=== PATIENT | male | born 1950 | race African-American/Black ===

== ENCOUNTER 2018-07-11 22:07 | Inpatient (IN) ==
[2018-07-11] MEDS ORDERED: ZOFRAN IV ONE (22:55)
[2018-07-11] MEDS ORDERED: LR 1,000 ML IV ONE (22:56)
[2018-07-11 23:06] LABS: BILIRUBIN URINE NEGATIVE (NEGATIVE); BLOOD URINE 3+ (NEGATIVE); CLARITY SL. CLOUDY (CLEAR); COLOR YELLOW; KETONE URINE 1+(Small) mg/dL (NEGATIVE); LEUKOCYTES URINE 2+ (NEGATIVE); NITRITE URINE NEGATIVE (NEGATIVE); PH URINE 6.5; PROTEIN URINE 1+(30 mg/dL) mg/dL (NEGATIVE); SP GRAVITY URINE 1.015; URINE BACTERIA 3+ /HFP; URINE EPITHELIAL CELLS <10 /HPF (<10); URINE RBC 20-40 /HPF (<10); URINE SOURCE CLEAN CATCH; UROBILINOGEN URINE NORMAL
[2018-07-11 23:39] LABS: BASO# 0.01 X1000 (0.0-0.2); BASO% 0.1 % (0.0-0.8); EOS# 0.01 X1000 (0.0-0.7); EOS% 0.1 % (0.0-10.0); HEMATOCRIT 45.2 % (42.0-52.0); HEMOGLOBIN 15.9 g/dL (14.0-18.0); IMM GRAN# 0.04 X1000 (0.0-0.04); IMM GRAN% 0.4 % (0.0-0.5); LYMPH# 1.22 X1000 (1.2-3.4); LYMPH% 12.3 % (20.5-51.1); MCH 32.3 PG (27-31); MCHC 35.2 g/dL (33-37); MCV 91.7 FL (81-99); NEUT# 8.21 X1000 (1.4-6.5); NEUT% 83.1 % (42.2-75.2); PLT 138 X1000 (130-400); RBC 4.93 XMIL (4.7-6.1); RDW 12.5 % (11.5-14.5); WBC 9.89 X1000 (4.8-10.8)
[2018-07-11 23:50] LABS: AGAP 15; ALBUMIN 4.7 g/dL (3.5-5.0); ALKALINE PHOSPHATASE 105 U/L (32-122); BUN 11 mg/dL (8-22); CALCIUM 9.5 mg/dL (8.8-10.2); CHLORIDE 95 mmol/L (98-107); COSMO 283; CREATININE 0.9 mg/dL (0.7-1.2); ESTIMATED GFR > 60; GLUCOSE 335 mg/dL (70-104); GOT 19 U/L (10-34); GPT 20 U/L (10-44); LIPASE 14 U/L (13-60); POTASSIUM 3.9 mmol/L (3.5-5.1); SODIUM 135 mmol/L (136-145); TCO2 24 mmol/L (25-35); TOTAL PROTEIN 9.6 g/dL (6.3-8.3)
[2018-07-12] MEDS ORDERED: HUMULIN R IV ONE (00:43)
[2018-07-12] MEDS ORDERED: MORPHINE IV ONE (01:12)
[2018-07-12] MEDS ORDERED: ZOSYN 3.375 GM in NS 50 ML IV ONE (01:54)
--- NOTE | 2018-07-12 01:58 | PROVIDER DOCUMENTATION ---
This chart was entered by Dixie Flower Scribe, acting as scribe for Demetri Massey MD. HPI-Abdominal Pain/GI Problem - General Chief Complaint: Abdominal Pain Stated Complaint: ABD PAIN, N/V Time Seen by Provider: 07/11/18 22:41 Source: patient Allergies/Adverse Reactions: Patient Allergies Allergy/AdvReac Type Severity Reaction Status Date / Time No Known Allergies Allergy Verified 09/29/15 14:13 Home Medications: Home Medication List Medication Instructions Recorded Confirmed Last Taken Type Carvedilol 25 mg PO BID 02/19/14 09/29/15 05/19/14 12:00 History Clonidine [Catapres] 0.2 mg PO BID 02/19/14 09/29/15 05/19/14 12:00 History Insulin Glargine,Hum.rec.anlog 20 unit SQ BID 02/19/14 09/29/15 05/18/14 09:00 History [Lantus Solostar] Metformin E.r. [Glucophage Xr] 500 mg PO BID CC 02/19/14 09/29/15 05/18/14 18:00 History Famotidine [Pepcid] 40 mg PO HS 05/19/14 09/29/15 05/17/14 20:00 History Amlodipine Besylate 10 mg PO DAILY 09/29/15 09/29/15 Unknown History Citalopram [Celexa] 20 mg PO DAILY 09/29/15 09/29/15 Unknown History Hydralazine [Apresoline] 10 mg PO TID 09/29/15 09/29/15 Unknown History LISINOpril [Prinivil] 10 mg PO DAILY 09/29/15 09/29/15 Unknown History Tamsulosin HCl 0.4 mg PO DAILY 09/29/15 09/29/15 Unknown History CephALEXIN [Keflex] 500 mg PO Q12HR #10 capsule 10/05/15 Unknown Rx Oxycodone/APAP 5 mg/325 mg 1 each PO Q6H #20 tablet 10/05/15 Unknown Rx [Percocet-5] - History of Present Illness-ABD Nature of Presenting Problems: Pt is 67/m presenting to ED w/ ABD pain. Pt sts that he had catfish and cabbage this morning and has since has n/v and abd pain. pt has hx of colon CA Abdominal Pain Onset Location: reports: epigastric Pain Radiation: reports: no radiation Quality of Pain: reports: aching Severity in ED: reports: moderate Onset/Duration: reports: just prior to arrival Timing: reports: still present Activities at Onset: reports: other (eating cabbage and fish) Exposure to sick contacts?: No Modifying Factors: improves with: nothing Associated Symptoms: reports: nausea, vomiting Last BM: unsure Bruising or Bleeding Gums?: No Similar Symptoms Previously?: No Recently seen or treated by another doctor?: No Review of Systems - Adult - REVIEW OF SYSTEMS - ADULT Constitutional: reports: no symptoms reported. denies: chills, fever Eyes: reports: no symptoms reported Ears, Nose, Mouth & Throat: reports: no symptoms reported Cardiovascular: reports: no symptoms reported Respiratory: reports: no symptoms reported Gastrointestinal: reports: abdominal pain, nausea, vomiting. denies: diarrhea Genitourinary: reports: no symptoms reported Musculoskeletal: reports: no symptoms reported Integumentary: reports: no symptoms reported Neurological: reports: no symptoms reported Psychiatric: reports: no symptoms reported Endocrine: reports: no symptoms reported Hematologic/Lymphatic: reports: no symptoms reported Allergic/Immunologic: reports: no symptoms reported All Other Systems: Reviewed and Negative Past History - Adult - PAST MEDICAL HISTORY-ADULT Review of Records: reports: Old Records Reviewed, Nursing Assessment Review, Medications Reviewed, Social history reviewed & non-contributory. Major Childhood Illnesses: reports: denies history Cardiovascular: reports: cardiac disease, CAD, HTN Respiratory: reports: denies history Gastrointestinal: reports: cancer (colon) Obstetrical/Gynecological: reports: denies history Genitourinary: reports: denies history Musculoskeletal: reports: chronic pain, intervertebral disc disease Neurological: reports: denies history Endocrine/Immune: reports: Diabetes Other Conditions: reports: denies history - PRIOR SURGERIES/PROCEDURES Surgical/Procedure History: reports: CABG, bowel surgery (colon resection), back/neck - IMMUNIZATION STATUS Childhood Immunizations: See Nurse Assessment Flu Vaccine: See Nurse Assessment - FAMILY HISTORY Family History: reviewed, not pertinent - SOCIAL HISTORY Smoking: cigarettes Provider spent 3-5 mins advising pt. on dangers of tobacco.: Discussed manners to quit use, and f/u contacts for add'l counseling. Substance Use: none/never Alcohol Use Frequency: never Living Situation: family Physical Exam-General - PHYSICAL EXAM-ADULT Initial Vital Signs Reviewed: Yes - CONSTITUTIONAL General Appearance: alert, moderate distress - EYES Eyes: PERRL/EOMI - HEAD, EARS, NOSE, MOUTH & THROAT HENMT: normocephalic/atraumatic, moist mucous membranes - NECK Neck: non-tender, full range of motion, supple, normal inspection - RESPIRATORY Respiratory: lungs clear - CARDIOVASCULAR Cardiovascular: regular rate, rhythm - GASTROINTESTINAL (ABDOMEN) Abdominal Exam: soft, abnormal bowel sounds (increased bowel sounds), distended (mildly), tenderness (moderately tender diffuse) - LYMPHATIC Lymphatic: no adenopathy - MUSCULOSKELETAL Back Exam: normal inspection, no CVA tenderness, no vertebral tenderness Extremity: normal range of motion, non-tender, normal gait, normal inspection - SKIN Integumentary: normal color, warm/dry - PSYCHIATRIC Psych/Mental Status: normal thought process, oriented x 3 Progress - PLAN OF CARE/RESULTS Progress/Plan/Lab Results: Vital Signs - 8 hr 07/11/18 22:11 Pulse Rate 72 Respiratory Rate 20 Blood Pressure 195/100 O2 Sat by Pulse Oximetry 99 Orders Category Date Time Status Saline Loc DIRECTED Care 07/11/18 22:19 Active NPO Diet 07/11/18 22:19 Active AMYLASE [CHEM] Stat Lab 07/11/18 22:19 Ordered CBC WITH ELECTRONIC DIFF [HEME] Stat Lab 07/11/18 22:19 Ordered COMPREHENSIVE METABOLIC PANEL [CHEM] Stat Lab 07/11/18 22:33 Ordered LIPASE [CHEM] Stat Lab 07/11/18 22:[address] W/POSS RFLX CULT [URINALYSIS] Stat Lab 07/11/18 22:20 Received Result Diagrams: 07/11/18 23:01 07/11/18 23:01 - REASSESSMENT Reassessment #1 Time Reassessed: 02:07 Status: other (seen by Dr. Hamilton : will admit to [facility]) - CT/MRI 1 CT Study: Abdomen Impression: Abnormal (developing or partial small bowel obstruction;small amount of free fluid) - CONSULTS/PCP/HOSPITALIST Notification #1 *Consult/PCP/Hospitalist*: Dr. 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 Qualified Code(s): E11.65 - Type 2 diabetes mellitus with hyperglycemia; Z79.4 - residential (current) use of insulin Disposition: ADMITTED INPATIENT 09 Certified Medical Emergency: Emergent Condition: Serious Referrals and Follow-Ups: Reed Pagan MD [Primary Care Provider] - - Critical Care Note This patient required my direct & personal management of CC.: No Attestation - Physician/ ANGELA Attestation Patient care was provided by Advanced Practice Provider:: No The physician spent face to face time with patient:: Yes Advanced Practice Provider documentation review:: Supervising physician onsite and consulted in the evaluation and care of this patient. The physician did have a face to face encounter with the patient. This chart was documented by the indicated scribe, (Dixie Flower Scribe) and accurately reflects the services I performed and decisions made by Shilpa terrell Kofi X., MD, as attested by the provider's signature.
[2018-07-12] MEDS ORDERED: NS 1,000 ML IV ONE (02:14)
[2018-07-12] MEDS: MORPHINE IV PRN ×9 (02:42→23:08)
[2018-07-12] MEDS: ZOFRAN IV PRN ×5 (02:43→20:14)
--- NOTE | 2018-07-12 03:12 | HISTORY AND PHYSICAL ---
CHIEF COMPLAINT: Abdominal pain. HISTORY OF PRESENT ILLNESS: This is a 67-year-old male who presents to the ER with periumbilical to lower abdominal pain that is intermittent in nature but severe, worsened with vomiting, lessened after he vomits. It began yesterday morning after eating some cabbage. He has not had a bowel movement in a day and he has not passed gas in the past 24 hours. PAST MEDICAL HISTORY: Colon cancer, hypertension, diabetes, coronary artery disease. PAST SURGICAL HISTORY: Partial colectomy, back surgery, open heart surgery. ALLERGIES: No known drug allergies. HOME MEDICATIONS: [place], insulin and blood pressure medicine; he does not recall the names. FAMILY HISTORY: Reviewed and noncontributory. SOCIAL HISTORY: He smokes a pack per day. He drinks alcohol occasionally. No illicit drug use. REVIEW OF SYSTEMS: Ten systems reviewed and negative except as noted above. PHYSICAL EXAMINATION: VITAL SIGNS: Temperature 98.4 degrees, pulse 83, respirations 18, blood pressure 195/109, O2 saturation 94%. GENERAL: He is a well-developed male in no distress who looks his stated age. HEENT: Normocephalic, atraumatic. Extraocular muscles intact. Pupils equal, round and reactive to light. Sclerae anicteric. Moist mucous membranes. Hearing grossly normal. No oral lesions. NECK: Supple. No thyromegaly. CARDIOVASCULAR: Regular rate and rhythm. RESPIRATORY: Bilateral breath sounds. No work of breathing. GASTROINTESTINAL: Soft. Mildly distended, mildly tender. No rebound or guarding. No organomegaly or mass. No hernias. He has a well-healed lower midline incision. EXTREMITIES: No clubbing, cyanosis or edema. SKIN: Warm and dry. No rash. MUSCULOSKELETAL: Moves all extremities equally and well. LABORATORY DATA: CBC and complete metabolic profile reviewed, and notable for sodium 135, chloride 95, CO2 is 24, glucose 335. DIAGNOSTIC DATA: Abdominopelvic CT scan shows proximal small bowel dilation, distal small bowel decompression with a transition point in the midabdomen. No free air or free fluid. ASSESSMENT AND PLAN: A 67-year-old male with small-bowel obstruction, likely secondary to adhesive disease. We will admit him, keep him NPO, rehydrate him and place a nasogastric tube to low wall suction, and re-examine his abdomen and imaging tests later today. cc: Adriel Hamilton MD
--- NOTE | 2018-07-12 04:57 | CONSULTATION ---
DATE OF CONSULTATION: 07/12/2018 REQUESTING PROVIDER: Adriel Hamilton MD REASON FOR CONSULTATION: Medical and diabetes management. HISTORY OF PRESENT ILLNESS: Mr. Toure is a 67-year-old male who came into the emergency room yesterday related to having abdominal pain. It was lower abdomen and periumbilical. It was severe, sharp, intermittent. Was made better after vomiting. It was worse while vomiting. He had several episodes of emesis and came into the emergency room. 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 He states that he has not had a bowel movement in 24 hours, has also not passed gas in around [address] scan obtained showed a small-bowel obstruction. He will be admitted to the medical floor for further evaluation and treatment. PAST MEDICAL HISTORY: Colon cancer status post colon resection, hypertension, diabetes mellitus type 2, coronary artery disease status post CABG. PREVIOUS SURGICAL HISTORY: Partial colectomy, back surgery and CABG. SOCIAL HISTORY: Smokes a pack a day. Drinks alcohol occasionally. No illicit drug use. He is disabled. FAMILY HISTORY: Positive for hypertension and diabetes mellitus in first-degree relatives. ALLERGIES: No known drug allergies. HOME MEDICATIONS LIST: [place], insulin and blood pressure medications. The patient was unable to give me a list. Order was placed for Nursing to reconcile a list of medications in the computer. These will be restarted when appropriate. REVIEW OF SYSTEMS: Fourteen-point review of systems conducted with the patient. Pertinent positives are listed above in the HPI. All other systems are reviewed and found to be negative. PHYSICAL EXAMINATION: VITAL SIGNS: Temperature 97.8, pulse 81, respirations 18, blood pressure 156/90, oxygen saturation 95% on room air. GENERAL: A pleasant 67-year-old male lying in the ER stretcher, answers all questions appropriately, is alert and oriented times 3. HEENT: Head is atraumatic, normocephalic. Pupils equal, round, reactive to light. Extraocular eye movement is intact. Sclerae are anicteric. Conjunctiva is pink. Oral mucosa is mildly dry. NECK: Supple. No JVD. No thyromegaly. Trachea is midline. No cervical lymphadenopathy. CARDIAC: S1, S2 appreciated. No murmurs, gallops, or rubs. LUNGS: Clear to auscultation bilaterally. No rhonchi, wheezes or rales. Symmetrical rise and fall with respirations. ABDOMEN: Soft, mildly distended, diffusely tender to palpation, greatest in the lower abdomen. No rebound tenderness. No guarding. Bowel sounds hypoactive in all 4 quadrants. No organomegaly. No pulsatile mass. EXTREMITIES: No clubbing, cyanosis or edema. Two-plus pedal pulses bilaterally. SKIN: Warm, dry and intact. No acute lesions or rash. GENITOURINARY: No bladder distention. Patient voids. Otherwise deferred. NEUROLOGICAL: Alert and oriented times 3. No focal motor deficits. Otherwise nonfocal examination. DIAGNOSTIC DATA: CT of the abdomen and pelvis showed a developing or partial small bowel obstruction. LABORATORY DATA: CBC within normal limits. Sodium 135, potassium 3.9, chloride 95, carbon dioxide 24, BUN 11, creatinine 0.9, glucose 335. Urine: Leukocyte esterase positive, 2+ WBC, 3+ bacteria. ASSESSMENT AND PLAN: 1. Partial small-bowel obstruction. Dr. Hamilton has admitted the patient. Nasogastric tube will remain to low wall suction for decompression. Will continue IV rehydration. Morphine as needed for pain. 2. Hypertension. Patient was unable to tell me which home medications he takes. Will place on labetalol 10 mg IV q.4 hours p.r.n. Nursing to reconcile home medications. These will be restarted when appropriate. 3. Diabetes mellitus type 2, now insulin-dependent with hyperglycemia. Check hemoglobin A1c. Sliding scale insulin. Fingerstick blood sugars. 4. Urinary tract infection. Rocephin 1 g IV q.24 hours. 5. Fluid volume depletion. Continue IV rehydration. Zofran as needed for nausea. Further recommendations per the patient's clinical course. Dictated by SILVIO Bojorquez for Bright Newell MD cc: SILVIO Bojorquez MD Jason R. Seale, MD I have seen and examined Mr Toure who came from [place] under the surgery services. We have been consulted for co-management of his other medical morbidities. He presents with partial SBO. will keep NPO and repeat KUB in the morning and follow further recommendations from surgery. I agree with the above consult not and the plan reflects my opinion discussed with the NECKTIES PAINTER. KAROL
[2018-07-12 05:18] LABS: HEMOGLOBIN A1C 10.2 % (4.8-6.0)
[2018-07-12] MEDS: LABETALOL IV PRN ×3 (06:00→21:17)
[2018-07-12] MEDS ORDERED: HUMULIN R (PARKWAY) SUBQ SCH (07:00)
--- NOTE | 2018-07-12 07:15 | Diag Imaging Result Doc PS360 ---
EXAM: CT ABD/PELVIS W/IV CONT ONLY 07/11/2018 HISTORY: abdominal pain TECHNIQUE: This exam was performed using automated exposure control, adjustment of mA or kV according to patient size, and/or use of iterative reconstruction technique. COMMENT: There are no previous abdominal studies available for comparison. Comparison is made with the CT of the chest of 09/29/2015 where possible. There are apparent fibrotic changes in the lung bases which were present at the time the previous examination. There are two subcentimeter nodular opacities present in the left posterior costophrenic sulcus which were also present at that time. There are numerous small densely calcified gallstones. There is no evidence of para cholecystic fluid or inflammation. There are granulomata in the spleen. The liver is unremarkable. There is a small amount of fluid present in the right paracolic gutter and directly adjacent to the inferior portion of the liver. The kidneys are without evidence of hydronephrosis or mass. The adrenal glands are not enlarged. The pancreas is unremarkable in appearance. There is atherosclerotic calcification in the aorta and iliac arteries. There is an infrarenal abdominal aortic aneurysm with a maximum AP diameter of 2.9 cm. This was not included on the previous thoracic study. The aorta was not visible on the ultrasound of 09/29/2015, however at the time of the lumbar spine CT of 05/03/2014, the aorta measured up to 2.8 cm in AP dimension. There is some fluid in the stomach without significant distention. There are some small bowel loops which are slightly distended containing fluid. There is no evidence of significant adenopathy. The colon is largely nondistended. There are distal small bowel loops which are normal or slightly diminished in caliber. The duodenum is not distended nor is there apparent distention of the proximal jejunum. There is an apparent transition in the mid upper pelvis. Pelvis: The appendix is normal in appearance. There is a fat-containing umbilical hernia. There is a small amount of fluid in the rectovesical pouch. The urinary bladder is not distended. There is no evidence of acute bony abnormality. There is no evidence of significant adenopathy. IMPRESSION: 1. Partial small bowel obstruction. 2. Abdominal aortic aneurysm, essentially stable since 05/03/2014. 3. Cholelithiasis. Electronically signed by Ivan Huynh 07/12/2018 7:13 AM
[2018-07-12] MEDS: HUMALOG SUBQ SCH ×4 (08:04→21:58)
[2018-07-12] MEDS: ROCEPHIN 1 GM in NS 50 ML IV SCH (08:04)
--- NOTE | 2018-07-12 09:36 | Diag Imaging Result Doc PS360 ---
ABDOMEN FLAT/UPRIGHT - 07/12/2018 INDICATION: sbo COMPARISON: CT from earlier this morning FINDINGS: There are some slightly gas distended loops of small bowel throughout the abdomen mainly on the left side. These measure up to 3.5 cm. There is very little gas or stool in the colon. No free air. IMPRESSION: Abnormal small bowel gas pattern suggestive of partial mechanical obstruction. No change from prior. Electronically signed by Cristino Pike 07/12/2018 9:33 AM
--- NOTE | 2018-07-12 14:01 | GENERAL SURGERY PROGRESS NOTE ---
DATE: 07/12/2018 SUBJECTIVE: The patient feels about the same with mid abdominal pain and distention. No nausea or vomiting. He has not passed any gas or had a bowel movement. The nurses were unsuccessful in getting NG tube this morning. OBJECTIVE: He is afebrile. Vital signs are stable. General he is awake, alert, oriented x3. No acute distress. GI soft, mildly distended and tender. No rebound or guarding. He has a few bowel sounds present. LABORATORY: None today. IMAGING: An abdominal x-ray this morning continues to show gas distended loops of small bowel with very little gas or stool in the colon. ASSESSMENT/PLAN: 67-year-old male with small bowel obstruction. We will try an NG tube again and repeat an x-ray in the morning. Dr. Mares will take over his care during my absence. cc: MD Red Mai MD
[2018-07-12] MEDS: NS 1,000 ML IV SCH ×2 (16:34→20:19)
[2018-07-12] MEDS: VASOTEC IV SCH (17:20)
[2018-07-12] MEDS: SODIUM CHLORIDE 0.9% INJ SCH (18:04)
[2018-07-12] MEDS: PROTONIX IV SCH (18:04)
[2018-07-12] MEDS ORDERED: DULCOLAX PR SCH (21:00)
[2018-07-13] MEDS: VASOTEC IV SCH ×2 (04:10→16:49)
[2018-07-13 05:55] LABS: BASO# 0.01 X1000 (0.0-0.2); BASO% 0.2 % (0.0-0.8); EOS# 0.02 X1000 (0.0-0.7); EOS% 0.3 % (0.0-10.0); HEMATOCRIT 41.7 % (42.0-52.0); HEMOGLOBIN 14.4 g/dL (14.0-18.0); LYMPH# 1.25 X1000 (1.2-3.4); LYMPH% 20.8 % (20.5-51.1); MCH 33.1 PG (27-31); MCHC 34.5 g/dL (33-37); MCV 95.9 FL (81-99); MONO# 0.76 X1000 (0.11-0.59); MONO% 12.6 % (1.7-9.3); MPV 14.2 FL (7.4-10.4); NEUT# 3.98 X1000 (1.4-6.5); NEUT% 66.1 % (42.2-75.2); PLT 128 X1000 (130-400); RBC 4.35 XMIL (4.7-6.1); RDW 12.7 % (11.5-14.5); WBC 6.02 X1000 (4.8-10.8)
[2018-07-13] MEDS: HUMALOG SUBQ SCH ×4 (06:09→20:59)
[2018-07-13 06:27] LABS: AGAP 11; BUN 19 mg/dL (8-22); CALCIUM 8.7 mg/dL (8.8-10.2); CHLORIDE 103 mmol/L (98-107); COSMO 290; CREATININE 1.2 mg/dL (0.7-1.2); ESTIMATED GFR > 60; GLUCOSE 242 mg/dL (70-104); POTASSIUM 3.7 mmol/L (3.5-5.1); SODIUM 140 mmol/L (136-145); TCO2 26 mmol/L (25-35)
[2018-07-13] MEDS: ROCEPHIN 1 GM in NS 50 ML IV SCH (08:13)
--- NOTE | 2018-07-13 10:17 | PROGRESS NOTE ---
DATE: 07/13/2018 SUBJECTIVE: Mr. Boaz Toure is a 67-year-old black male admitted by Dr. Adriel Hamilton with the diagnosis of small-bowel obstruction. He has had previous abdominal surgery. A CT scan also suggests that he has cholelithiasis. He has not had an NG tube placed because it has been difficult to place it. This morning he states that his abdominal discomfort is resolved. His abdomen is soft and he admits to passing a lot of flatus. His heart rate is 88, blood pressure 120/58. O2 saturation 95%. He is afebrile. His white blood cell count is normal. Hematocrit is 42%. Electrolytes are within normal limits. BUN of 19, creatinine 1.2. His glucose has been a little bit elevated. PLAN: We will let him have clear liquids. Stop his IV antibiotics and morphine. We will increase his activity. cc: MD eRd Ruiz MD
--- NOTE | 2018-07-13 11:13 | Diag Imaging Result Doc PS360 ---
FLAT/UPRIGHT ABD/1 VIEW CHEST - 07/13/2018 INDICATION: sbo TECHNIQUE: COMPARISON: 07/12/2018 FINDINGS: There is stable pulmonary fibrosis bilaterally. Stable abnormally gas-distended small bowel loops mainly in the left side of the abdomen. No free air or rectal gas. IMPRESSION: Small bowel obstruction. No change from prior. Electronically signed by Cristino Pike 07/13/2018 11:10 AM
[2018-07-13] MEDS: ZOFRAN IV PRN (14:46)
[2018-07-13] MEDS: NORCO-10 PO PRN ×2 (14:48→20:59)
[2018-07-13] MEDS: NS 1,000 ML IV SCH (14:51)
[2018-07-13] MEDS: SODIUM CHLORIDE 0.9% INJ SCH (16:49)
[2018-07-13] MEDS: PROTONIX IV SCH (16:49)
[2018-07-13] MEDS ORDERED: VANCOMYCIN IV PER PHARMACY MISC SCH (17:15)
[2018-07-13] MEDS ORDERED: SODIUM CHLORIDE 0.9% INJ SCH (17:30)
--- NOTE | 2018-07-13 17:35 | PROGRESS NOTE ---
DATE: 07/13/2018 SUBJECTIVE: Patient has no major complaints except he started throwing up today after he got liquids. OBJECTIVE: Vital Signs: Blood pressure is 185/92, heart rate is 82, respiratory rate 18, temperature 98.8, 98% on room air. Cardiovascular: Regular rate and rhythm. Pulmonary: Bilateral breath sounds clear to auscultation. GI: Soft, nontender, nondistended. Bowel sounds are positive, but diminished. LABORATORY DATA: White count is 6, hemoglobin and hematocrit 14 and 41, platelets 128. Blood glucose 242, 308, still very high. PROBLEM LIST: 1. Partial small bowel obstruction. He has not done as well since we advanced his diet. We may have to back off a little bit. I will defer to surgery though. 2. Hypertension. It is still not well controlled. I am going to increase his Vasotec and follow closely. 3. Diabetes. Also not completely controlled. We may need to start some low-dose Lantus. I know he is not ingesting very much, but he has some fairly persistent hyperglycemia. He is on sliding scale insulin for the time being. 4. Urinary tract infection. We will continue empiric antibiotics. He has got gram-positive cocci in his urine, so we will continue vancomycin and follow. DISPOSITION: Pending his clinical status. cc: Red Colon MD
[2018-07-13] MEDS ORDERED: PROTONIX IV SCH (18:00)
[2018-07-13] MEDS: MORPHINE IV PRN (18:37)
[2018-07-13] MEDS ORDERED: VANCOMYCIN 2 GM in NS 500 ML IV ONE (20:00)
[2018-07-13] MEDS: DULCOLAX PR SCH (20:59)
[2018-07-14] MEDS: MORPHINE IV PRN ×4 (01:17→20:17)
[2018-07-14] MEDS: NS 1,000 ML IV SCH (01:18)
[2018-07-14] MEDS: VASOTEC IV SCH ×2 (01:18→08:29)
[2018-07-14 05:59] LABS: BASO# 0.01 X1000 (0.0-0.2); BASO% 0.1 % (0.0-0.8); EOS# 0.06 X1000 (0.0-0.7); EOS% 0.8 % (0.0-10.0); HEMATOCRIT 41.6 % (42.0-52.0); IMM GRAN# 0.02 X1000 (0.0-0.04); IMM GRAN% 0.3 % (0.0-0.5); LYMPH# 1.96 X1000 (1.2-3.4); LYMPH% 27.6 % (20.5-51.1); MCH 32.3 PG (27-31); MCHC 33.7 g/dL (33-37); MCV 95.9 FL (81-99); MONO# 0.98 X1000 (0.11-0.59); MONO% 13.8 % (1.7-9.3); MPV 13.7 FL (7.4-10.4); NEUT# 4.07 X1000 (1.4-6.5); NEUT% 57.4 % (42.2-75.2); PLT 113 X1000 (130-400); RBC 4.34 XMIL (4.7-6.1); RDW 12.3 % (11.5-14.5)
[2018-07-14] MEDS: HUMALOG SUBQ SCH ×4 (06:00→22:15)
[2018-07-14 06:32] LABS: AGAP 11; BUN 16 mg/dL (8-22); CALCIUM 8.7 mg/dL (8.8-10.2); CHLORIDE 102 mmol/L (98-107); COSMO 277; CREATININE 0.8 mg/dL (0.7-1.2); ESTIMATED GFR > 60; GLUCOSE 129 mg/dL (70-104); MAGNESIUM 1.7 mg/dL (1.5-2.7); POTASSIUM 3.1 mmol/L (3.5-5.1); SODIUM 137 mmol/L (136-145); TCO2 24 mmol/L (25-35)
[2018-07-14] MEDS: PEPCID PO SCH (08:29)
[2018-07-14] MEDS: DULCOLAX PR SCH ×2 (08:30→22:14)
[2018-07-14] MEDS ORDERED: NORCO-10 PO PRN (10:52)
[2018-07-14] MEDS ORDERED: KLOR-CON PO ONE (10:52)
[2018-07-14] MEDS: LABETALOL IV PRN ×2 (11:07→20:48)
[2018-07-14] MEDS: NORCO-10 PO PRN (12:12)
--- NOTE | 2018-07-14 16:01 | PROGRESS NOTE ---
DATE: 07/14/2018 SUBJECTIVE: Patient has no major complaints. OBJECTIVE: Blood pressure is 185/96, heart rate 77, respiratory rate 18, temperature 98.7. Cardiovascular: Regular rate and rhythm. Pulmonary: Bilateral breath sounds. Clear to auscultation. Gastrointestinal: Soft but somewhat firm. No pain or only very mild tenderness. No rebound, no guarding. Bowel sounds are positive. LABORATORY DATA: White count is 7, hemoglobin and hematocrit 14 and 41, platelets of 113,000. Potassium is 3.1. PROBLEM LIST: 1. Partial small bowel obstruction. Surgery is following. His diet has been advanced. 2. Uncontrolled hypertension. He has been on IV medications. We will switch him back to his oral medications now that he has stabilized. I am going to hold on Norvasc just because he is already constipated and we do not want to worsen his symptoms potentially, but will switch his Vasotec to lisinopril and follow. 3. He has a strep agalactiae UTI. Not entirely sure he is not symptomatic from that. He has been on vancomycin which we will stop and I think we can switch him to Levaquin and follow. 4. Hypokalemia. We will supplement and follow. DISPOSITION: Pending his clinical status. We will encourage ambulation and monitor closely. cc: Red Colon MD
[2018-07-14] MEDS: SODIUM CHLORIDE 0.9% INJ SCH (16:20)
[2018-07-14] MEDS: PRINIVIL PO SCH (16:32)
[2018-07-14] MEDS: LEVAQUIN PO SCH (16:42)
--- NOTE | 2018-07-14 16:58 | PROGRESS NOTE ---
DATE: 07/14/2018 Mr. Boaz Toure is a patient of Dr. Salomon, who is a 67-year-old black male, who was admitted with a small-bowel obstruction. Yesterday when I saw him he stated that he had flatus, and we advance his diet to clear liquids, but this morning he has had some crampy abdominal pain and he is distended again. His electrolytes are within normal limits. BUN is 16, creatinine 0. White blood cell count is normal, hematocrit is 42%. His heart rate 66, blood pressure 162/83 O2 saturation 99%. He is afebrile. He is eating 50% to 75% of his clear liquid meals. He has had no vomiting. Urine output is marginal. He does not have an NG tube because it has been difficult to put down. He is taking some liquids. This morning, his abdomen was distended. He has had no nausea or vomiting. He has had some crampy abdominal pain. We will repeat laboratory data and a flat and upright of his abdomen tomorrow. We will ask him increase his activity today. cc: MD Red Ruiz MD
[2018-07-14] MEDS ORDERED: VANCOMYCIN 1,700 MG in NS 250 ML IV SCH (20:00)
[2018-07-15] MEDS: NS 1,000 ML IV SCH ×2 (04:06)
[2018-07-15] MEDS: HUMALOG SUBQ SCH ×4 (06:13→22:52)
[2018-07-15 06:31] LABS: BASO# 0.01 X1000 (0.0-0.2); BASO% 0.1 % (0.0-0.8); EOS% 1.2 % (0.0-10.0); HEMATOCRIT 43.6 % (42.0-52.0); HEMOGLOBIN 14.9 g/dL (14.0-18.0); IMM GRAN# 0.03 X1000 (0.0-0.04); IMM GRAN% 0.4 % (0.0-0.5); LYMPH# 2.52 X1000 (1.2-3.4); LYMPH% 31.3 % (20.5-51.1); MCH 32.7 PG (27-31); MCHC 34.2 g/dL (33-37); MCV 95.8 FL (81-99); MONO# 0.91 X1000 (0.11-0.59); MONO% 11.3 % (1.7-9.3); MPV 13.5 FL (7.4-10.4); NEUT# 4.49 X1000 (1.4-6.5); NEUT% 55.7 % (42.2-75.2); PLT 136 X1000 (130-400); RBC 4.55 XMIL (4.7-6.1); RDW 12.3 % (11.5-14.5); WBC 8.06 X1000 (4.8-10.8)
[2018-07-15 07:09] LABS: AGAP 12; BUN 11 mg/dL (8-22); CALCIUM 8.9 mg/dL (8.8-10.2); CHLORIDE 100 mmol/L (98-107); COSMO 276; CREATININE 0.9 mg/dL (0.7-1.2); ESTIMATED GFR > 60; GLUCOSE 140 mg/dL (70-104); MAGNESIUM 1.8 mg/dL (1.5-2.7); POTASSIUM 3.6 mmol/L (3.5-5.1); SODIUM 137 mmol/L (136-145); TCO2 25 mmol/L (25-35)
--- NOTE | 2018-07-15 08:29 | Diag Imaging Result Doc PS360 ---
FLAT/UPRIGHT ABD/1 VIEW CHEST - 07/15/2018 INDICATION: small bowel obstruction TECHNIQUE: COMPARISON: 07/13/2018 FINDINGS: There are stable to slight worsening, extensive gas distended loops of small bowel filling the abdomen, mainly on the left side. These measure up to 5.1 cm. No free air. Very little gas throughout the colon, and not in the rectum. IMPRESSION: Slight worsening in the mechanical small bowel obstruction. Electronically signed by Cristino Pike 07/15/2018 8:27 AM
[2018-07-15] MEDS ORDERED: LOPRESSOR PO SCH (09:00)
[2018-07-15] MEDS: PEPCID PO SCH (13:37)
[2018-07-15] MEDS: PRINIVIL PO SCH (13:37)
[2018-07-15] MEDS: DULCOLAX PR SCH ×2 (13:37→21:36)
[2018-07-15] MEDS: LEVAQUIN PO SCH (13:38)
[2018-07-15] MEDS ORDERED: FENTANYL ONE (14:13)
[2018-07-15] MEDS ORDERED: KEFZOL 2 GM/D5W 2 GM/50 ML IVPB ONE (14:18)
[2018-07-15] MEDS ORDERED: DIPRIVAN 1% ONE (14:56)
[2018-07-15] MEDS ORDERED: XYLOCAINE-MPF 2% ONE (14:56)
[2018-07-15] MEDS ORDERED: QUELICIN (DOSE) ONE (15:16)
[2018-07-15] MEDS ORDERED: ZEMURON ONE (15:16)
[2018-07-15] MEDS ORDERED: NEO-SYNEPHRINE ONE (15:16)
[2018-07-15] MEDS ORDERED: SODIUM CHLORIDE 0.9% 10 ML ONE (15:16)
[2018-07-15] MEDS ORDERED: EPHEDRINE ONE (15:16)
[2018-07-15] MEDS ORDERED: ROBINUL ONE ×2 (15:54→16:16)
[2018-07-15] MEDS ORDERED: NEOSTIGMINE ONE ×2 (15:54→16:16)
[2018-07-15] MEDS ORDERED: ZOFRAN ONE (16:16)
[2018-07-15] MEDS ORDERED: DECADRON ONE (16:16)
[2018-07-15] MEDS ORDERED: DILAUDID ONE (16:30)
[2018-07-15] MEDS ORDERED: PHENERGAN ONE (17:26)
[2018-07-15] MEDS ORDERED: TORADOL ONE (17:58)
[2018-07-15] MEDS ORDERED: OFIRMEV 1000 MG/ISOTONIC SOLN 1,000 MG/100 ML BOTTLE ONE (17:58)
[2018-07-15] MEDS ORDERED: LR 1,000 ML ONE (18:09)
[2018-07-15] MEDS ORDERED: SODIUM CHLORIDE 0.9% INJ PRN (18:15)
--- NOTE | 2018-07-15 18:25 | OPERATIVE NOTE ---
PROCEDURE DATE: 07/15/2018 PREOPERATIVE DIAGNOSIS: Small bowel obstruction. POSTOPERATIVE DIAGNOSIS: 1. Small bowel obstruction. 2. Perforation mid small bowel. PRINCIPAL PROCEDURE: 1. Exploratory laparotomy with lysis of adhesions. 2. Primary repair of the small bowel perforation. SURGEON: Alyx Kelley MD ANESTHESIA: General. ESTIMATED BLOOD LOSS: 100 mL. DRAINS: NG tube, Titus catheter tube. INDICATIONS: Mr. Boaz Toure is a 67-year-old black male who has had previous colon surgery. He was admitted by Dr. Hamilton with abdominal cramping and distention. An NG tube could not be placed even by Dr. Hamilton himself. Flat and upright abdominal film suggested some air in the colon and he admitted to some flatus, but over the several days of his hospitalization, he had increasing abdominal distention and continued crampy abdominal pain. Exploratory laparotomy was recommended when there was no improvement of his x-rays. FINDINGS: He had malignant intra-abdominal adhesions. He had multiple adhesions involving the small bowel, the retroperitoneum and the small bowel loops themselves. The omentum was to the left of the abdomen and involved the retroperitoneum and the pelvis. The small bowel was dilated proximally. It was decompressed distally. As we were lysing adhesions and manipulating the swollen bowel, chicken bone popped through the mesenteric side of an area of the mid small bowel and I used a [id number] to control the contamination. We felt that that was an adequate closure even after checking it at the end of the procedure. I lysed all adhesions so that I could run the entire small bowel. No other intra-abdominal pathology was noted. We placed an NG tube and I felt its position. I milked back air and fluid into the stomach and it was removed using the NG tube. It must be noted that the small bowel mesentery was thickened and inflamed. I did not palpate any abnormalities in the colon. We placed the bowel back in its anatomically correct position. The omentum was placed over the superficial bowel and the abdomen was closed. It must be noted that we had to call the urologist to place the Titus at the end of the procedure because of a stricture. DESCRIPTION OF PROCEDURE: The patient was brought to the operating room, placed supine, received general anesthesia, was intubated. Attempts at a Titus catheter tube were unsuccessful. An NG tube was placed. His abdomen was prepped and draped in a sterile field. I used an Ioban on the skin. I made a midline incision. It was carried down through the skin and subcutaneous tissue with a 10 blade scalpel. Then I entered the abdomen at the midline using cautery carefully not to injure any of the bowel. The bowel was dilated and I started bring it up out of the abdomen. We took time to lyse adhesions. There were adhesions between the small bowel and the anterior abdominal wall. There were interloop adhesions between bowel loops, and there were also adhesions between the greater omentum and the retroperitoneum. These were malignant adhesions and there were a lot of intra-abdominal adhesions. I did not recognize one place that had caused the obstruction, but I freed all adhesions using scissors, tissue scissors or the cautery, so that I could run the entire small bowel. A fish bone perforated the bowel on the mesentery side, mid bowel, during our procedure, and I closed this hole with [id number]-[id number] 3-0 silk stitch. We removed the bone. Once all adhesions were dissected free, we milked fluid back along the small bowel into the stomach. It was removed using NG suction. The small bowel was placed back in its anatomically correct position. The greater omentum was placed over the small bowel. I closed the wound in layers. The first layer was the peritoneum with a running 0 Vicryl stitch and then the fascia was closed with a #1 Maxon stitch. We irrigated the midline incision and then I closed the skin with a skin clip data warehousing architect. Dressings were applied. At this time, urology came in to place the Titus catheter tube. Anesthesia had placed a left subclavian central venous line and he had an NG tube in place. Plans are for him to go the recovery room and then to go to the floor. cc: MD Red Ruiz MD
[2018-07-15] MEDS ORDERED: LR 1,000 ML IV SCH (19:00)
--- NOTE | 2018-07-15 19:05 | Diag Imaging Result Doc PS360 ---
EXAM: CHEST-PORTABLE INDICATION: post op CVL TECHNIQUE: One view COMPARISON: 07/15/2018 FINDINGS: There is a newly placed left subclavian line. The tip projects over the region of the SVC a few centimeters superior to the atriocaval junction. There is no evidence of pneumothorax. There is also an NG tube in place with the tip projecting well below the diaphragm and assumed to be in the lumen of the stomach in the expected position. At the lung volumes are very low. Central vasculature is prominent suggesting pulmonary venous congestion. No other new consolidation is identified. Cardiac silhouette is stable. IMPRESSION: 1.Interval placement of NG tube and left central line as described. No evidence of pneumothorax. 2.Low lung volumes and suggestion of pulmonary venous congestion. Electronically signed by Andrew Stein 07/15/2018 7:03 PM
[2018-07-15] MEDS: MORPHINE IV PRN ×2 (19:55→21:28)
--- NOTE | 2018-07-15 21:19 | PROGRESS NOTE ---
DATE: 07/15/2018 SUBJECTIVE: The patient has no major complaints. He is seen postop. NG in place. OBJECTIVE: Vital Signs: Blood pressure 135/92, heart rate of 109, respiratory rate 20, temperature 98.7, saturations of 100% on 2 L. Cardiovascular: Regular rate and rhythm. Pulmonary: Bilateral breath sounds. Clear to auscultation. GI: Soft, distended. Incision in place. Nasogastric tube in place. LABORATORY DATA: White count 8, hemoglobin and hematocrit 14 and 43, platelets of 136. Basic was normal. Plain films show increased abdominal distention with increasing small bowel obstruction. ASSESSMENT: 1. Partial small bowel obstruction. He is status post exploratory laparotomy and lysis of adhesions. We will continue treatment. Surgery is following. 2. Uncontrolled hypertension. We will continue medications and follow closely. 3. Strep agalactiae urinary tract infection. We will continue Levaquin and follow. 4. Hypokalemia. We will supplement and follow. DISPOSITION: Pending clinical course. cc: Red Colon MD
[2018-07-15] MEDS: CLINIMIX E 4.25%-5% SOLUTION 1,000 ML IV SCH (21:39)
[2018-07-15] MEDS: PERIDEX MT SCH (21:39)
--- NOTE | 2018-07-15 21:46 | OPERATIVE NOTE ---
PROCEDURE DATE: 07/15/2018 PREOPERATIVE DIAGNOSIS: Difficult catheter placement. 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 PROCEDURE PERFORMED: Difficult Titus catheter placement. SURGEON: Sukhi Griffin MD. COMPLICATIONS: None. BLOOD LOSS: Minimal. DRAINS: 14-Citizen Of [place] silicone catheter. INDICATION FOR PROCEDURE: Mr. oTure is a 67-year-old, who developed small- bowel obstruction, and was taken to the operating room today by Dr. Kelley for exploratory laparotomy, lysis of adhesions and repair of a bowel perforation. Urology was consulted at the end of the procedure and it was difficult to place a urethral catheter at the beginning of the procedure, both the nursing as well as the surgeon attempted to place a catheter and were not able to place. Urology was consulted for further recommendations and catheter placement. The patient was asleep and there was no family available to discuss procedure with. DESCRIPTION OF PROCEDURE: The Urology on-call was notified of need for a catheter. I evaluated the patient, at which time, normal phallus was visualized with a normal meatus without evidence of any blood per urethra. Bilateral testicles were palpated without masses or nodularity. Previously, nursing had try to place the catheter at the beginning of the procedure and met resistance in the proximal urethra. They said they attempted multiple times with multiple types of catheter and met resistance. I obtained a sterile catheter kit and then prepped his phallus with Betadine at which time I obtained a 14-Citizen [place] silicone catheter and attempted to pass it. However, there was resistance met in the bulbar urethra, at which time I removed the catheter and used a Zipwire through the urethra, which passed easily into the bladder with only a small portion externalized. I obtained a Bard dilator kit, inserting a 12-Citizen [place] dilator and increasing up to 18-Citizen [place]. Was able to pass the dilators with drainage of clear yellow urine. Following this, I used an 18-gauge needle through the silicon catheter, was able to pass a wire through the catheter and the catheter slid easily into the bladder with return of clear yellow urine. It was inflated with 10 mL of sterile water and placed to gravity drainage, at which time my portion of the procedure was terminated. The patient was awoken and was taken to recovery in stable condition. DISPOSITION: Patient will be monitored for resolution of bowel obstruction. We will plan to leave his catheter in for at least 3 days and attempt a voiding trial when ambulatory. This was discussed with Dr. Kelley. I will continue to monitor. Please call with questions or concerns. cc: MD Red Mcdonald MD MTDD
[2018-07-15] MEDS: OFIRMEV 1000 MG/ISOTONIC SOLN 1,000 MG/100 ML BOTTLE IV SCH (23:06)
[2018-07-15] MEDS: TORADOL IV SCH (23:06)
[2018-07-16] MEDS: MORPHINE IV PRN ×3 (04:27→13:27)
[2018-07-16] MEDS: TORADOL IV SCH (05:25)
[2018-07-16] MEDS: OFIRMEV 1000 MG/ISOTONIC SOLN 1,000 MG/100 ML BOTTLE IV SCH ×4 (05:26→23:32)
[2018-07-16] MEDS: HUMALOG SUBQ SCH ×4 (06:00→21:36)
[2018-07-16 06:27] LABS: BASO# 0.02 X1000 (0.0-0.2); BASO% 0.2 % (0.0-0.8); HEMATOCRIT 38.9 % (42.0-52.0); HEMOGLOBIN 13.3 g/dL (14.0-18.0); IMM GRAN# 0.09 X1000 (0.0-0.04); IMM GRAN% 0.7 % (0.0-0.5); LYMPH# 1.25 X1000 (1.2-3.4); LYMPH% 9.5 % (20.5-51.1); MCH 32.4 PG (27-31); MCHC 34.2 g/dL (33-37); MCV 94.9 FL (81-99); MONO# 1.47 X1000 (0.11-0.59); MONO% 11.2 % (1.7-9.3); NEUT# 10.34 X1000 (1.4-6.5); NEUT% 78.4 % (42.2-75.2); PLT 112 X1000 (130-400); RDW 12.1 % (11.5-14.5); WBC 13.17 X1000 (4.8-10.8)
[2018-07-16 06:43] LABS: BANDS 2 % (0-1); EOS 2 % (1-10); LYMPHS 10 % (21-51); MONO 4 % (1-9); SEGS 82 % (42-75)
[2018-07-16 06:44] LABS: AGAP 13; BUN 23 mg/dL (8-22); CALCIUM 7.9 mg/dL (8.8-10.2); CHLORIDE 97 mmol/L (98-107); COSMO 279; CREATININE 1.1 mg/dL (0.7-1.2); ESTIMATED GFR > 60; GLUCOSE 354 mg/dL (70-104); MAGNESIUM 1.7 mg/dL (1.5-2.7); PHOSPHORUS 4.1 mg/dL (2.7-4.5); POTASSIUM 5.1 mmol/L (3.5-5.1); SODIUM 130 mmol/L (136-145); TCO2 20 mmol/L (25-35)
--- NOTE | 2018-07-16 09:06 | PROGRESS NOTE ---
DATE: 07/16/2018 SUBJECTIVE: Postop day 1 from urethral dilation and catheter placement. The patient had an intraoperative consult yesterday by Dr. Kelley. The nursing staff had difficulty with placing a catheter. I attempted to place a 14-[place] silicone catheter, and met significant amount of resistance. I was able to pass a wire and ultimately dilated the urethra with placement of a 14-[place] silicone catheter into the bladder with clear yellow urine. On talking to the patient today, patient has a history of nocturia and frequent urination. It sounds like the patient has had a urethral stricture for some time now. He denies seeing a urologist previously. The patient remains afebrile with good urinary output with no evidence of any clots within his urine. OBJECTIVE: Vital Signs: Temperature 97.6, heart rate 102, blood pressure 97/56, oxygen saturation 96% on nasal cannula. GENERAL: Mild abdominal pain, no acute distress. Alert and oriented x3. Cardiovascular: Low-grade tachycardia. HEENT: NG tube in place with a small amount of bilious drainage Respiratory: Good respiratory effort without audible wheezing or rales. Abdomen: Soft. Mild tenderness to palpation. Mild distention. Dressing is present over midline abdominal incision. : No suprapubic tenderness. Urethral catheter in place with clear yellow urine. PROSPER shows a small prostate without any obvious nodularity or firmness. LABORATORY DATA: White blood cell count 13.2, hemoglobin 13.3, hematocrit 38.9, and platelets 112,000. Sodium 130, potassium 5.1, chloride 97, bicarb 20, BUN 23, creatinine 1.1, and glucose 352. ASSESSMENT AND PLAN: Mr. Toure is a 67-year-old who presented to the hospital with abdominal distention and small bowel obstruction. He was taken to the operating room yesterday by Dr. Kelley. He had an intraoperative consult to urology for catheter placement. I performed difficult catheter placement with placement of a wire. Then, dilated the urethra starting at 12F and increasing up to 18F, was able to get a 14-[place] silicone catheter in, and has been draining clear yellow urine. Approximately 200 mL were present in the bag this morning, and 325 mL were recorded. The patient has a history of urethral stricture from his report of symptoms. He denies seeing a urologist prior. I would keep his urethral catheter in for at least 3 days, and then if he is more ambulatory they can consider a removal. We will continue to monitor. Please call with questions or concerns. cc: MD Red Mcdonald MD MTDD
[2018-07-16] MEDS: CLINIMIX E 4.25%-5% SOLUTION 1,000 ML IV SCH ×2 (09:57→16:21)
[2018-07-16] MEDS ORDERED: XYLOCAINE-MPF 1%/EPI 1:200,000 INJ ONE (10:15)
[2018-07-16] MEDS ORDERED: XYLOCAINE INJ ONE (10:32)
[2018-07-16] MEDS ORDERED: EPI INJ ONE (10:32)
[2018-07-16] MEDS: DULCOLAX PR SCH ×2 (10:33→21:38)
[2018-07-16] MEDS: PEPCID PO SCH (10:33)
[2018-07-16] MEDS: PERIDEX MT SCH ×2 (10:35→21:36)
[2018-07-16] MEDS: LEVAQUIN PO SCH (10:36)
--- NOTE | 2018-07-16 10:59 | PROGRESS NOTE ---
DATE: 07/16/2018 SUBJECTIVE: Mr. Boaz Toure is postop day 1 from exploratory laparotomy with extensive lysis of adhesions. He also had a chicken bone come through his small bowel during our operation. I did repair that primarily with a kubkpj-fy-xnzez silk stitch. He evidently had a skin bleeder throughout the night, and we changed his midline wound dressing. I injected some lidocaine with epinephrine in the area, and we redressed the wound. He still has an NG tube in place. His abdomen is tightly distended as expected. He also has a Titus catheter tube. His heart rate is 102, blood pressure 97/56, O2 saturation 96%, he is afebrile. He is on no antibiotics. He is receiving some Clinimix. We need to probably change that to TPN and lipids. He has a left-sided central venous line in place. His white blood cell count is 13, hematocrit is 39%. Electrolytes: BUN is 23, creatinine is 1.1, glucose is a little bit elevated. PLAN: We need to leave his NG tube. Will leave his Titus catheter tube today. Will try to increase his activity. Will look to start TPN and lipids through his central venous line, and stop the Clinimix. cc: MD Red Ruiz MD
[2018-07-16] MEDS ORDERED: INSULIN PEN NEEDLES ONE (12:29)
[2018-07-16] MEDS: BASAGLAR SUBQ SCH (12:58)
[2018-07-16] MEDS: SODIUM CHLORIDE 0.9% INJ SCH (12:58)
[2018-07-16] MEDS: PROTONIX IV SCH (12:58)
[2018-07-16] MEDS ORDERED: D10W 1,000 ML IV PRN (20:00)
[2018-07-16] MEDS ORDERED: TPN ELECTROLYTES 20 ML, MAGNESIUM SULFATE 5 MEQ, POTASSIUM CHLORIDE 40 MEQ, SODIUM PHOS... IV SCH ×8 (20:00)
[2018-07-16] MEDS: LIPOSYN 20% 500 ML IV SCH (20:01)
--- NOTE | 2018-07-16 23:08 | PROGRESS NOTE ---
DATE: 07/16/2018 SUBJECTIVE: Patient has no major complaints except for just pain, generally speaking, discomfort associated with NG tube. OBJECTIVE: Vital signs: Blood pressure 98/56, heart rate 104, respiratory 16, temperature 97.7 degrees, 94% on room air. Cardiovascular: Regular rate and rhythm. Pulmonary: Bilateral breath sounds. Clear to auscultation. Gastrointestinal: Abdominal exam was benign. Dressing intact. NG tube in place. Bowel sounds diminished. LABORATORY DATA: White count is 13, hemoglobin and hematocrit 13 and 38, platelets 112,000. Sodium 130, BUN and creatinine 23 and 1.1. Sugar of 354. PROBLEM LIST: 1. Small-bowel obstruction status post exploratory laparotomy with lysis of adhesion, postop day 1. We will continue support. Surgery is following. TPN initiated. 2. Hypertension. Continue his regular medications and follow. He is on the low end today, possibly due to dehydration. 3. Streptococcus agalactiae infection. He is on Levaquin. 4. Hyperkalemia, appears to be improved. We will continue to monitor closely. 5. Moderate protein calorie malnutrition. We will continue to follow. DISPOSITION: Pending his clinical status. We will continue to monitor closely. cc: Red Colon MD
[2018-07-17] MEDS: MORPHINE IV PRN ×8 (02:30→23:33)
[2018-07-17] MEDS: OFIRMEV 1000 MG/ISOTONIC SOLN 1,000 MG/100 ML BOTTLE IV SCH ×4 (05:24→23:33)
[2018-07-17] MEDS: HUMALOG SUBQ SCH ×5 (05:25→20:56)
[2018-07-17] MEDS ORDERED: INSULIN PEN NEEDLES ONE (05:46)
[2018-07-17 06:41] LABS: BASO# 0.02 X1000 (0.0-0.2); BASO% 0.2 % (0.0-0.8); EOS# 0.07 X1000 (0.0-0.7); EOS% 0.6 % (0.0-10.0); HEMATOCRIT 28.9 % (42.0-52.0); HEMOGLOBIN 9.7 g/dL (14.0-18.0); IMM GRAN# 0.16 X1000 (0.0-0.04); IMM GRAN% 1.3 % (0.0-0.5); LYMPH# 1.23 X1000 (1.2-3.4); LYMPH% 10.3 % (20.5-51.1); MCH 32.3 PG (27-31); MCHC 33.6 g/dL (33-37); MCV 96.3 FL (81-99); MONO# 1.85 X1000 (0.11-0.59); MONO% 15.5 % (1.7-9.3); MPV 13.6 FL (7.4-10.4); NEUT% 72.1 % (42.2-75.2); PLT 74 X1000 (130-400); WBC 11.93 X1000 (4.8-10.8)
[2018-07-17 07:16] LABS: AGAP 10; BUN 31 mg/dL (8-22); CALCIUM 7.8 mg/dL (8.8-10.2); CHLORIDE 98 mmol/L (98-107); CHOLESTEROL 102 mg/dL (0-200); COSMO 281; CREATININE 1.1 mg/dL (0.7-1.2); ESTIMATED GFR > 60; GLUCOSE 302 mg/dL (70-104); GOT 12 U/L (10-34); MAGNESIUM 1.8 mg/dL (1.5-2.7); PHOSPHORUS 2.6 mg/dL (2.7-4.5); POTASSIUM 3.7 mmol/L (3.5-5.1); PREALBUMIN 9.9 mg/dL (20-40); SODIUM 131 mmol/L (136-145); TCO2 23 mmol/L (25-35); TRIGLYCERIDES 241 mg/dL (39-160)
[2018-07-17] MEDS: PERIDEX MT SCH ×2 (08:45→20:41)
[2018-07-17] MEDS: BASAGLAR SUBQ SCH (08:45)
[2018-07-17] MEDS: DULCOLAX PR SCH ×2 (08:50→20:41)
[2018-07-17] MEDS ORDERED: SODIUM PHOSPHATE 40 MEQ in NS 250 ML IV ONE (09:25)
[2018-07-17] MEDS ORDERED: BASAGLAR SUBQ ONE (09:26)
--- NOTE | 2018-07-17 10:22 | PROGRESS NOTE ---
DATE: 07/17/2018 Mr. Boaz Toure is a 67-year-old black male, who underwent exploratory laparotomy for a small- bowel obstruction. He had extensive adhesions or malignant adhesions intra-abdominally, and all of those were taken down. He had a chronic small-bowel obstruction, and his bowel was chronically dilated and the concepcion were thickened. He also had a perforation of the small bowel from a chicken bone, and we repaired that primarily. Today, he continues with NG suction. He has not had much out of his NG tube, but his abdomen remains tightly distended. The midline incision is intact. He is awake and cooperative. He has a central venous line, TPN and lipids were started yesterday. I think those were written by our dietitian. His sugar is a little out of control and we need to review how much insulin he has in his TPN. His heart rate is 110, blood pressure 114/70, O2 saturation 94%. He still has a Titus catheter tube in place. His white blood cell count has gone from 13 to 12, his hematocrit is 30%. Electrolytes are within normal limits, except his potassium was a little bit low. Sugars have been too high. cc: MD Red Ruiz MD
[2018-07-17] MEDS: PROTONIX IV SCH (11:13)
[2018-07-17] MEDS ORDERED: MISC. PHARMACY COMMUNICATION SCH (11:45)
[2018-07-17] MEDS ORDERED: TPN ELECTROLYTES 20 ML, MAGNESIUM SULFATE 5 MEQ, POTASSIUM CHLORIDE 40 MEQ, SODIUM PHOS... IV SCH ×9 (12:01)
[2018-07-17] MEDS: PHENERGAN IV PRN (14:11)
[2018-07-17] MEDS: LIPOSYN 20% 500 ML IV SCH (20:41)
[2018-07-17] MEDS: POTASSIUM CHLORIDE IV SCH ×9 (20:41)
[2018-07-17] MEDS: [UNRECOGNIZED DRUG - OTHER] IV SCH ×9 (20:41)
[2018-07-17] MEDS: TPN ELECTROLYTES IV SCH ×9 (20:41)
[2018-07-17] MEDS: MAGNESIUM SULFATE IV SCH ×9 (20:41)
--- NOTE | 2018-07-17 22:10 | PROGRESS NOTE ---
DATE: 07/17/2018 SUBJECTIVE: The patient has no major complaints. OBJECTIVE: Vital signs: His blood pressure is 147/76, heart rate 107, respiratory rate 20, temperature 99 degrees, 93% on 2 L. Cardiovascular: Regular rate and rhythm. Pulmonary: Bilateral breath sounds, clear to auscultation. Gastrointestinal: Soft, nontender. Bowel sounds are positive. LABORATORY: White count 11, hemoglobin 9, hematocrit 28, platelets 74,000. Sodium 131, Potassium 2.6. PROBLEM LIST: 1. Small-bowel obstruction, status post exploratory laparotomy and lysis of adhesion, postoperative day 2. We will continue the NG tube and follow. TPN has been started. We will continue to follow. 2. Diabetes, not well controlled. I have been slowly increasing the Lantus, and I will continue Lantus for now. I will continue to follow. 3. We will continue with PT and follow closely. DISPOSITION: Pending his clinical status and follow closely. cc: Red Colon MD MTDD
[2018-07-18] MEDS: MORPHINE IV PRN ×9 (04:49→22:29)
[2018-07-18] MEDS: OFIRMEV 1000 MG/ISOTONIC SOLN 1,000 MG/100 ML BOTTLE IV SCH ×3 (05:44→17:53)
[2018-07-18] MEDS: HUMALOG SUBQ SCH ×5 (05:45→20:55)
[2018-07-18 06:05] LABS: BASO# 0.02 X1000 (0.0-0.2); BASO% 0.2 % (0.0-0.8); EOS# 0.13 X1000 (0.0-0.7); EOS% 1.1 % (0.0-10.0); HEMATOCRIT 28.2 % (42.0-52.0); HEMOGLOBIN 9.3 g/dL (14.0-18.0); IMM GRAN# 0.29 X1000 (0.0-0.04); IMM GRAN% 2.5 % (0.0-0.5); LYMPH% 13.7 % (20.5-51.1); MCH 31.8 PG (27-31); MCV 96.6 FL (81-99); MONO# 1.67 X1000 (0.11-0.59); MONO% 14.3 % (1.7-9.3); MPV 13.9 FL (7.4-10.4); NEUT# 7.93 X1000 (1.4-6.5); NEUT% 68.2 % (42.2-75.2); PLT 65 X1000 (130-400); RBC 2.92 XMIL (4.7-6.1); RDW 12.2 % (11.5-14.5); WBC 11.64 X1000 (4.8-10.8)
[2018-07-18 06:21] LABS: AGAP 9; BUN 19 mg/dL (8-22); CALCIUM 8.6 mg/dL (8.8-10.2); CHLORIDE 102 mmol/L (98-107); COSMO 283; CREATININE 0.7 mg/dL (0.7-1.2); ESTIMATED GFR > 60; GLUCOSE 251 mg/dL (70-104); MAGNESIUM 1.9 mg/dL (1.5-2.7); PHOSPHORUS 2.2 mg/dL (2.7-4.5); POTASSIUM 3.5 mmol/L (3.5-5.1); SODIUM 136 mmol/L (136-145); TCO2 25 mmol/L (25-35)
[2018-07-18 06:31] LABS: ALB/GLOB RATIO 1.1; ALBUMIN 3.1 g/dL (3.5-5.0); DIRECT BILIRUBIN 0.1 mg/dL (0.00-0.20); TOTAL BILIRUBIN 0.31 mg/dL (0.20-1.00)
--- NOTE | 2018-07-18 06:55 | PROGRESS NOTE ---
DATE: 07/18/2018 SUBJECTIVE: No acute events overnight. The catheter continues to drain well with clear yellow urine. Denies any suprapubic tenderness or urethral tenderness. The patient does describe abdominal distention and pain. Continues with NG tube with relatively low output and spitting up occasional material into a bedside bucket. Remains NPO. OBJECTIVE: Vital signs: Temperature 99.9 degrees, heart rate 97, blood pressure 157/90, oxygen saturation 96% on room air. General: Mild distress, alert and oriented x3. Respiratory: Good respiratory effort without audible wheezing or rales. Nasal cannula in place. HEENT: NG tube also in place draining bilious output. Abdomen: Tender to palpation. Moderate distention. The midline incision present. Genitourinary: No suprapubic tenderness. Urethral catheter in place draining clear yellow urine. No urethral erosion visualized. LABS: White blood cell count 11.6, hemoglobin 9.3, hematocrit 28.2, platelets 65,000. Sodium 136, potassium 3.5, chloride 102, bicarb 25, BUN 19, creatinine 0.7. Glucose 281. ASSESSMENT AND PLAN: Mr. Toure is a 67-year-old who underwent exploratory laparotomy for small- bowel obstruction by Dr. Kelley. I was called intraoperatively for catheter placement. Had a bulbar urethra stricture that required urethral dilation and catheter placement. The patient underwent this procedure and has been having good clear yellow urine since then. His creatinine has remained stable. Creatinine today is 0.7. Denies any suprapubic tenderness. The patient does have some abdominal distention. He states he has not been ambulatory since surgery. Due to this, I recommend continued indwelling catheter for strict in's and out's with nasogastric tube in place. When the patient becomes more ambulatory and ultimately can get his nasogastric tube out, could consider removal of his Titus catheter. We will continue at this time. Please call with questions or concerns. cc: MD Red Mcdonald MD MTDD
[2018-07-18] MEDS: PHENERGAN IV PRN (08:29)
[2018-07-18] MEDS: PERIDEX MT SCH ×2 (08:34→20:54)
[2018-07-18] MEDS: DULCOLAX PR SCH ×2 (08:35→21:06)
[2018-07-18] MEDS: PROTONIX IV SCH (10:57)
[2018-07-18] MEDS: SODIUM CHLORIDE 0.9% INJ SCH (10:57)
[2018-07-18] MEDS: LEVAQUIN 500 MG/D5W 500 MG/100 ML IVPB IV SCH (14:17)
--- NOTE | 2018-07-18 15:55 | PROGRESS NOTE ---
DATE: 07/18/2018 SUBJECTIVE: The patient is resting in bed. OBJECTIVE: Vital signs: Temperature 99 degrees, pulse is 102, respirations 20, blood pressure 130/75, oxygen saturation is 95%. HEENT: Atraumatic, normocephalic. Cardiovascular: S1, S2. Respiratory: Has evidence of good air entry bilaterally. Abdomen: Soft, nontender. Bowel sounds absent. Extremities: No evidence of significant edema. Central nervous system: No obvious focal deficits noted. LABS: WBC is 11.65, hematocrit 28.2, with a platelet count of 65,000. Sodium is 136, potassium 3.5, chloride is 102, bicarb 25, BUN is 19, creatinine 0.5, phosphorus level is 2.2, and calcium level is 8.6. ASSESSMENT AND PLAN: 1. Small bowel obstruction status post exploratory laparotomy with lysis of adhesions. NG tube still in place. TPN started. Surgery is following. 2. Diabetes mellitus. Monitor blood sugar levels. Maintain patient on sliding scale insulin. 3. Hypertension. Optimize blood pressure control. The patient is currently on labetalol 10 mg IV q.4 p.r.n. 4. Tobacco use history. Aware. Recommend nicotine patch. 5. Alcoholism. Maintain patient on delirium tremens prophylaxis, thiamine, folic acid, multivitamin. Correct electrolyte abnormalities. 6. Urinary tract infection secondary to Streptococcus agalactiae. Follow blood cultures and initiate antibiotics. 7. Deep vein thrombosis prophylaxis. SCDs. 8. Gastrointestinal prophylaxis. PPI. cc: Stuart Del Rio MD
[2018-07-18] MEDS ORDERED: THIAMINE 100 MG in NS 50 ML IV SCH (16:00)
--- NOTE | 2018-07-18 16:57 | PROGRESS NOTE ---
DATE: 07/18/2018 SUBJECTIVE: Mr. Boaz Toure is now postop day three from exploratory laparotomy for significant adhesions. He also had a perforation of his small bowel at the time of surgery because of a chicken bone and we did close that with a stitch. Today, he has been certainly uncomfortable with tightly distended abdomen and his throat is also sore from his NG tube. He has had not much output from his NG tube. His white blood cell count has trended down a little bit. His electrolytes are okay and he is on TPN. OBJECTIVE: His heart rate is 107, blood pressure 114/70, O2 saturation 94%. He is afebrile. LABORATORY: His glucose is still high. We did add some insulin to the TPN yesterday. His white blood cell count 11.6, hematocrit is 28%. Electrolytes are within normal limits. BUN is 19 creatinine of 0.7. PLAN: NG tube suction needs to continue and TPN also. We are trying to make him more comfortable as far as is crampy abdominal pain. His midline incision is intact. cc: MD Stuart Ruiz MD
[2018-07-18] MEDS ORDERED: FOLIC ACID 1 MG in NS 50 ML IV SCH (17:00)
[2018-07-18] MEDS: NEUTRA-PHOS PO SCH ×2 (17:02→22:28)
--- NOTE | 2018-07-18 18:56 | Diag Imaging Result Doc PS360 ---
EXAM: KUB ABDOMEN 07/18/2018 HISTORY: r/o bowel perforation TECHNIQUE: KUB COMMENT: There is gas throughout the small bowel and colon. There are midline surgical skin clips from the epigastrium to the pubis. The dilatation of the small bowel loops is somewhat less severe than on 07/15/2018. Otherwise there has been no appreciable change. IMPRESSION: Ileus. Electronically signed by Ivan Huynh 07/18/2018 6:54 PM
[2018-07-18] MEDS: LIPOSYN 20% 500 ML IV SCH (20:53)
[2018-07-18] MEDS: [UNRECOGNIZED DRUG - OTHER] IV SCH ×9 (20:54)
[2018-07-18] MEDS: TPN ELECTROLYTES IV SCH ×9 (20:54)
[2018-07-18] MEDS: POTASSIUM CHLORIDE IV SCH ×9 (20:54)
[2018-07-18] MEDS: MAGNESIUM SULFATE IV SCH ×9 (20:54)
[2018-07-19] MEDS: OFIRMEV 1000 MG/ISOTONIC SOLN 1,000 MG/100 ML BOTTLE IV SCH ×5 (01:03→23:32)
[2018-07-19] MEDS: MORPHINE IV PRN ×2 (01:04→06:08)
[2018-07-19] MEDS: LABETALOL IV PRN ×2 (04:16→10:14)
[2018-07-19] MEDS: HUMALOG SUBQ SCH ×4 (06:12→22:03)
[2018-07-19 06:14] LABS: AGAP 10; BUN 15 mg/dL (8-22); CALCIUM 8.3 mg/dL (8.8-10.2); CHLORIDE 99 mmol/L (98-107); COSMO 280; CREATININE 0.8 mg/dL (0.7-1.2); ESTIMATED GFR > 60; GLUCOSE 267 mg/dL (70-104); MAGNESIUM 1.8 mg/dL (1.5-2.7); PHOSPHORUS 2.7 mg/dL (2.7-4.5); POTASSIUM 3.9 mmol/L (3.5-5.1); SODIUM 135 mmol/L (136-145); TCO2 26 mmol/L (25-35)
[2018-07-19 06:42] LABS: DIRECT BILIRUBIN 0.1 mg/dL (0.00-0.20)
[2018-07-19 06:43] LABS: ALB/GLOB RATIO 0.9; TOTAL BILIRUBIN 0.4 mg/dL (0.20-1.00); TOTAL PROTEIN 6.5 g/dL (6.3-8.3)
--- NOTE | 2018-07-19 08:49 | PROGRESS NOTE ---
DATE: 07/19/2018 SUBJECTIVE: Boaz Toure is now postop day four from exploratory laparotomy with lysis of adhesions. His abdomen remains tightly distended. He has an NG tube in place. It has not had much output, but it is functional and I feel needs to stay in place. His Titus catheter tube remains because we had to ask Urology to place it because of a urethral stricture. He is getting peripheral TPN through a subclavian line. His sugars remain elevated, so I have asked to increase the insulin from 20 units/L to 30 units/L in the TPN bag. Over the weekend, we need to make sure that he increases his activity. His midline incision is healing without evidence of infection. His heart rate is 93, blood pressure 164/81, O2 saturation is 96%. He is afebrile. He is on levofloxacin I think because of secondary for a urinalysis. His electrolytes are within normal limits. His BUN is 15, creatinine 0.8. Sugars elevated. Liver function tests are within normal limits. Abdominal film yesterday suggested postoperative ileus. cc: MD Nasrin Ruiz MD
[2018-07-19] MEDS: PERIDEX MT SCH ×2 (09:51→22:02)
[2018-07-19] MEDS: CENTRUM SILVER PO SCH (09:51)
[2018-07-19] MEDS: NEUTRA-PHOS PO SCH ×3 (09:52→13:50)
[2018-07-19] MEDS: BASAGLAR SUBQ SCH (09:52)
[2018-07-19] MEDS: DILAUDID IV PRN ×5 (09:52→23:33)
[2018-07-19] MEDS: DULCOLAX PR SCH ×2 (09:52→22:03)
[2018-07-19] MEDS: PROTONIX IV SCH (11:30)
[2018-07-19] MEDS: SODIUM CHLORIDE 0.9% INJ SCH (11:31)
[2018-07-19] MEDS ORDERED: APRESOLINE IV ONE (12:12)
[2018-07-19] MEDS ORDERED: CATAPRES-TTS-1 TD SCH (12:15)
--- NOTE | 2018-07-19 12:52 | Diag Imaging Result Doc PS360 ---
ABDOMEN FLAT/UPRIGHT - 07/19/2018 INDICATION: ileus COMPARISON: 07/18/2018 FINDINGS: Stable extensive gas distended loops of small bowel filling essentially the entire abdomen. No definite rectal gas. No evidence of free air. There is a nasogastric tube with the tip in the distal stomach or duodenal bulb. IMPRESSION: No significant change in the small bowel ileus. Electronically signed by Cristino Pike 07/19/2018 12:50 PM
[2018-07-19] MEDS: LEVAQUIN 500 MG/D5W 500 MG/100 ML IVPB IV SCH (14:01)
--- NOTE | 2018-07-19 16:03 | PROGRESS NOTE ---
DATE: 07/19/2018 SUBJECTIVE: The patient complains of abdominal fullness and nausea with vomiting. He is now n.p.o. and currently on TPN. OBJECTIVE: Vital Signs: Temperature 98.5 degrees, blood pressure 162/79, heart rate 101, respirations 18, O2 saturation 98% on 2 L nasal cannula. General: This is an elderly male, lying in bed, in no acute distress. Skin: No rashes, no lesions. Head: Normocephalic. Atraumatic. Heart: S1, S2 normal. Tachycardic. Lungs: Diminished breath sounds at the bases. No wheezing. No rales. Abdomen: Hypoactive bowel sounds. Soft. Generalized tenderness. Extremities: No edema, no cyanosis, no calf tenderness. Neurologic: The patient is alert and oriented x4. LABORATORY DATA: Sodium 135, potassium 3.9, chloride 99, CO2 26, BUN 15, creatinine 0.8, glucose 267, calcium 8.3, phosphorus 2.7, AST 9, ALT 12. IMAGING: Abdominal x-ray shows a small bowel ileus. ASSESSMENT AND PLAN: 1. Status post exploratory laparotomy with lysis of adhesions secondary to a small-bowel obstruction. The patient currently has an ileus and is on total parenteral nutrition. Further management as per the general surgeon. 2. Primary repair of a small bowel perforation. Aware. The patient is currently on IV Levaquin. He is afebrile with a normal white blood cell count. 3. Diabetes mellitus type 2. Continue with sliding scale insulin. 4. Uncontrolled hypertension. The patient is n.p.o. We will start the patient on a catapres patch and order p.r.n. hydralazine. We will transition back to oral antihypertensives once the patient is cleared for p.o. intake. 5. Ileus. Continue to monitor for improvement. Further management as per the general surgeon. The patient is on laxative therapy. 6. Gastrointestinal prophylaxis. Continue on IV Protonix. 7. Deep vein thrombosis prophylaxis. Will start the patient on Lovenox. cc: Nasrin Gonsales MD [facility]helia
[2018-07-19] MEDS ORDERED: CHLORASEPTIC SPRAY MT PRN (16:22)
[2018-07-19] MEDS ORDERED: LOVENOX SUBQ SCH (17:00)
[2018-07-19] MEDS ORDERED: THORAZINE 25 MG in NS 25 ML IV ONE (17:05)
[2018-07-19 18:47] LABS: URINE SOURCE CATH
[2018-07-19 19:13] LABS: BILIRUBIN URINE NEGATIVE (NEGATIVE); BLOOD URINE SMALL (NEGATIVE); COLOR YELLOW; GLUCOSE URINE >1000 mg/dL (NEGATIVE); KETONE URINE NEGATIVE (NEGATIVE); LEUKOCYTES URINE NEGATIVE (NEGATIVE); NITRITE URINE NEGATIVE (NEGATIVE); PH URINE 7.5; PROTEIN URINE TRACE mg/dL (NEGATIVE); SP GRAVITY URINE 1.016; TURBIDITY URINE CLEAR (CLEAR); UROBILINOGEN URINE NORMAL (NORMAL)
[2018-07-19 19:15] LABS: UR EPITHELIAL CELLS <10 /HPF (<10); URINE BACTERIA NEGATIVE /HPF; URINE RBC 20-40 /HPF (<10); URINE WBC <10 /HPF (<10)
[2018-07-19] MEDS: LIPOSYN 20% 500 ML IV SCH (22:02)
[2018-07-19] MEDS: TPN ELECTROLYTES IV SCH ×9 (22:04)
[2018-07-19] MEDS: POTASSIUM CHLORIDE IV SCH ×9 (22:04)
[2018-07-19] MEDS: MAGNESIUM SULFATE IV SCH ×9 (22:04)
[2018-07-19] MEDS: [UNRECOGNIZED DRUG - OTHER] IV SCH ×9 (22:04)
[2018-07-19] MEDS: ZOSYN 3.375 GM in NS 50 ML IV SCH (23:33)
[2018-07-20] MEDS: DILAUDID IV PRN ×7 (03:00→22:53)
[2018-07-20] MEDS: OFIRMEV 1000 MG/ISOTONIC SOLN 1,000 MG/100 ML BOTTLE IV SCH ×4 (05:07→22:53)
[2018-07-20] MEDS: ZOSYN 3.375 GM in NS 50 ML IV SCH ×6 (05:08→22:19)
[2018-07-20] MEDS: HUMALOG SUBQ SCH ×4 (06:15→22:13)
[2018-07-20 06:46] LABS: BASO# 0.03 X1000 (0.0-0.2); BASO% 0.3 % (0.0-0.8); EOS# 0.12 X1000 (0.0-0.7); EOS% 1.3 % (0.0-10.0); HEMATOCRIT 27.6 % (42.0-52.0); HEMOGLOBIN 9.1 g/dL (14.0-18.0); IMM GRAN# 0.37 X1000 (0.0-0.04); IMM GRAN% 3.9 % (0.0-0.5); LYMPH# 1.37 X1000 (1.2-3.4); LYMPH% 14.4 % (20.5-51.1); MCH 32.2 PG (27-31); MCV 97.5 FL (81-99); MONO% 13.6 % (1.7-9.3); MPV 13.5 FL (7.4-10.4); NEUT# 6.35 X1000 (1.4-6.5); NEUT% 66.5 % (42.2-75.2); PLT 81 X1000 (130-400); RBC 2.83 XMIL (4.7-6.1); RDW 12.2 % (11.5-14.5); WBC 9.54 X1000 (4.8-10.8)
[2018-07-20 07:05] LABS: AGAP 13; BUN 15 mg/dL (8-22); CALCIUM 8.5 mg/dL (8.8-10.2); CHLORIDE 99 mmol/L (98-107); COSMO 281; CREATININE 0.9 mg/dL (0.7-1.2); ESTIMATED GFR > 60; GLUCOSE 254 mg/dL (70-104); MAGNESIUM 1.8 mg/dL (1.5-2.7); PHOSPHORUS 2.8 mg/dL (2.7-4.5); POTASSIUM 3.6 mmol/L (3.5-5.1); SODIUM 136 mmol/L (136-145); TCO2 24 mmol/L (25-35)
[2018-07-20 07:23] LABS: DIRECT BILIRUBIN 0.2 mg/dL (0.00-0.20); TOTAL BILIRUBIN 0.62 mg/dL (0.20-1.00); TOTAL PROTEIN 6.1 g/dL (6.3-8.3)
[2018-07-20] MEDS: BASAGLAR SUBQ SCH (08:50)
[2018-07-20] MEDS: PERIDEX MT SCH ×2 (08:51→22:14)
[2018-07-20] MEDS: DULCOLAX PR SCH ×2 (08:51→22:19)
[2018-07-20] MEDS: CENTRUM SILVER PO SCH (08:51)
[2018-07-20] MEDS: SODIUM CHLORIDE 0.9% INJ SCH (11:33)
[2018-07-20] MEDS: PROTONIX IV SCH (11:33)
[2018-07-20] MEDS: APRESOLINE IV PRN (11:34)
--- NOTE | 2018-07-20 11:58 | Diag Imaging Result Doc PS360 ---
EXAM: KUB ABDOMEN INDICATION: ileus TECHNIQUE: One view COMPARISON: 07/19/2018 FINDINGS: There are stable midline skin yohana. Moderate gaseous distention of multiple loops of small bowel is again noted. It is very similar to the previous study. No large volume free abdominal gas is identified. The abdomen is stable, otherwise. IMPRESSION: Essentially stable gaseous distention of small bowel indicating postsurgical ileus. Electronically signed by Andrew Stein 07/20/2018 11:56 AM
[2018-07-20] MEDS: NICODERM PATCH TD PRN (13:49)
--- NOTE | 2018-07-20 13:49 | PROGRESS NOTE ---
DATE: 07/20/2018 SUBJECTIVE: The patient complains of abdominal fullness and tightness. He has not had a bowel movement yet despite receiving laxative therapy. He continues to also complain of nausea and vomiting. OBJECTIVE: Vital Signs: Temperature 97.8 degrees, blood pressure 173/101, heart rate 99, respirations 18, O2 saturations 100% on room air. General: This is a elderly male lying in bed in no acute distress. Head: Normocephalic, atraumatic. Heart: S1, S2 normal. Lungs: Clear to auscultation bilaterally. Abdomen: Distended, hypoactive bowel sounds. The incision site is clean, dry and intact. No erythema noted. Extremities: No edema, no cyanosis. Neuro: The patient is alert and oriented x4. LABS: White blood cell count 9.5, hemoglobin 9.1, hematocrit 27, platelets 81,000, sodium 136, potassium 3.6, chloride 99, CO2 24, BUN 15, creatinine 0.9, glucose 254. Abdominal x-ray shows stable gas with distention of the small bowel indicating ileus. ASSESSMENT AND PLAN: 1. Postsurgical ileus. The patient is on laxative therapy. Continue to monitor for improvement. Would recommend trying to decrease the narcotic usage if possible. Further management as per the general surgeon. 2. Status post exploratory laparotomy with lysis of adhesions secondary to small bowel obstruction. Management as per the general surgeon. Continue on TPN. 3. Primary repair of a small-bowel perforation. Aware. Continue with antibiotic therapy. 4. Uncontrolled Diabetes mellitus type 2. Increase levemir to 25 units BID. 5. Uncontrolled hypertension. Continue on the Catapres 1 patch plus p.r.n. hydralazine. 6. Gastrointestinal prophylaxis. Continue on Protonix. 7. Thrombocytopenia. Will await the results of the HIT assay. Will avoid heparin products for now. cc: MD KAROL Rivero
[2018-07-20] MEDS ORDERED: FLEET ENEMA PR ONE (13:50)
--- NOTE | 2018-07-20 17:00 | GENERAL SURGERY PROGRESS NOTE ---
DATE: 07/20/2018 Mr. Toure continues to have abdominal distention, no flatus. He is afebrile. Heart rate 99, blood pressure 173/101. His abdomen is quiet. Intake 2151, output 1850. White count 9500, hemoglobin 9.1 hematocrit 27.6, BUN 15, creatinine 0.9. His x-ray shows ileus but does show some air in his colon. ASSESSMENT: Persistent postop ileus. PLAN: Will be to use a Fleet's enema. Dulcolax suppositories have not worked thus far. We will continue with NG suction and TPN. cc: MD Nasrin Melendrez MD
[2018-07-20] MEDS: LIPOSYN 20% 500 ML IV SCH ×2 (18:14→20:11)
[2018-07-20] MEDS: POTASSIUM CHLORIDE IV SCH ×9 (20:21)
[2018-07-20] MEDS: MAGNESIUM SULFATE IV SCH ×9 (20:21)
[2018-07-20] MEDS: [UNRECOGNIZED DRUG - OTHER] IV SCH ×9 (20:21)
[2018-07-20] MEDS: TPN ELECTROLYTES IV SCH ×9 (20:21)
[2018-07-20] MEDS ORDERED: LEVEMIR SUBQ SCH (21:00)
[2018-07-21] MEDS: OFIRMEV 1000 MG/ISOTONIC SOLN 1,000 MG/100 ML BOTTLE IV SCH ×4 (00:14→17:28)
[2018-07-21] MEDS: ZOSYN 3.375 GM in NS 50 ML IV SCH ×4 (00:45→18:20)
[2018-07-21] MEDS: DILAUDID IV PRN ×7 (02:03→20:33)
[2018-07-21] MEDS: APRESOLINE IV PRN ×2 (04:52→12:57)
[2018-07-21] MEDS ORDERED: INSULIN PEN NEEDLES ONE (06:10)
[2018-07-21 06:48] LABS: BASO# 0.04 X1000 (0.0-0.2); BASO% 0.4 % (0.0-0.8); EOS# 0.13 X1000 (0.0-0.7); EOS% 1.3 % (0.0-10.0); HEMATOCRIT 30.1 % (42.0-52.0); HEMOGLOBIN 9.8 g/dL (14.0-18.0); IMM GRAN# 0.43 X1000 (0.0-0.04); IMM GRAN% 4.2 % (0.0-0.5); LYMPH# 1.46 X1000 (1.2-3.4); LYMPH% 14.2 % (20.5-51.1); MCHC 32.6 g/dL (33-37); MCV 98.4 FL (81-99); MONO# 1.17 X1000 (0.11-0.59); MONO% 11.4 % (1.7-9.3); MPV 13.5 FL (7.4-10.4); NEUT# 7.04 X1000 (1.4-6.5); NEUT% 68.5 % (42.2-75.2); PLT 102 X1000 (130-400); RBC 3.06 XMIL (4.7-6.1); RDW 12.6 % (11.5-14.5); WBC 10.27 X1000 (4.8-10.8)
[2018-07-21] MEDS: HUMALOG SUBQ SCH ×4 (06:48→20:51)
[2018-07-21 07:17] LABS: AGAP 11; BUN 14 mg/dL (8-22); CALCIUM 8.6 mg/dL (8.8-10.2); CHLORIDE 98 mmol/L (98-107); COSMO 279; CREATININE 0.8 mg/dL (0.7-1.2); ESTIMATED GFR > 60; GLUCOSE 217 mg/dL (70-104); MAGNESIUM 1.9 mg/dL (1.5-2.7); PHOSPHORUS 2.8 mg/dL (2.7-4.5); POTASSIUM 3.5 mmol/L (3.5-5.1); SODIUM 136 mmol/L (136-145); TCO2 27 mmol/L (25-35)
[2018-07-21 07:18] LABS: ALBUMIN 3.3 g/dL (3.5-5.0); DIRECT BILIRUBIN 0.4 mg/dL (0.00-0.20); TOTAL BILIRUBIN 0.76 mg/dL (0.20-1.00); TOTAL PROTEIN 6.6 g/dL (6.3-8.3)
--- NOTE | 2018-07-21 07:45 | GENERAL SURGERY PROGRESS NOTE ---
DATE: 07/21/2018 Mr. Toure is slightly improved today. He does state that he has passed some flatus. He remains afebrile, heart rate 101, blood pressure 160/78. He has put 100 mL out his NG tube. He had 2190 in and 1900 out. His abdomen is a little bit softer. He seemed to respond to the Fleet's enema. We will repeat that today. cc: MD Nasrin Melendrez MD
[2018-07-21] MEDS: PERIDEX MT SCH ×2 (08:09→20:50)
[2018-07-21] MEDS: DULCOLAX PR SCH ×2 (08:09→20:50)
[2018-07-21] MEDS: LEVEMIR SUBQ SCH ×2 (08:10→20:51)
[2018-07-21] MEDS: PROTONIX IV SCH (11:21)
[2018-07-21] MEDS ORDERED: CATAPRES-TTS-2 TD ONE (12:50)
[2018-07-21] MEDS: PHENERGAN IV PRN (12:57)
--- NOTE | 2018-07-21 15:21 | PROGRESS NOTE ---
DATE: 07/21/2018 SUBJECTIVE: The patient continues to complain of abdominal fullness and nausea. OBJECTIVE: Vital Signs: Temperature 98.6 degrees, blood pressure 182/92, heart rate 100, respirations 16, O2 saturation 99% on room air. General: This is an elderly male lying in bed in no acute distress. Heart: S1, S2 normal. Tachycardic. Lungs: Clear to auscultation bilaterally. Abdomen: Hypoactive bowel sounds
--- NOTE | 2018-07-21 19:13 | Diag Imaging Result Doc PS360 ---
EXAM: ABDOMEN FLAT/UPRIGHT INDICATION: ileus TECHNIQUE: 2 views COMPARISON: 07/20/2018 FINDINGS: An NG tube is in place with the tip projecting below the diaphragm and assumed to be in the lumen of the stomach in the expected position. Midline skin yohana are again noted. Multiple gas-distended loops of small bowel throughout the abdomen are noted. This appears to have worsened slightly during the interval. No large volume free abdominal gas is identified. IMPRESSION: Gaseous distended loops of small bowel indicating postsurgical ileus as described that appears somewhat worse than the previous study. Electronically signed by Andrew Stein 07/21/2018 7:11 PM
[2018-07-21] MEDS: TPN ELECTROLYTES IV SCH ×11 (20:33)
[2018-07-21] MEDS: LIPOSYN 20% 500 ML IV SCH (20:33)
[2018-07-21] MEDS: [UNRECOGNIZED DRUG - OTHER] IV SCH ×11 (20:33)
[2018-07-21] MEDS: MAGNESIUM SULFATE IV SCH ×11 (20:33)
[2018-07-21] MEDS: POTASSIUM CHLORIDE IV SCH ×11 (20:33)
[2018-07-22] MEDS: OFIRMEV 1000 MG/ISOTONIC SOLN 1,000 MG/100 ML BOTTLE IV SCH ×4 (00:17→17:54)
[2018-07-22] MEDS: DILAUDID IV PRN ×8 (00:17→23:55)
[2018-07-22] MEDS: ZOSYN 3.375 GM in NS 50 ML IV SCH ×5 (03:46→23:45)
[2018-07-22 06:23] LABS: ALB/GLOB RATIO 0.8; ALBUMIN 3.2 g/dL (3.5-5.0); DIRECT BILIRUBIN 0.3 mg/dL (0.00-0.20); TOTAL BILIRUBIN 0.8 mg/dL (0.20-1.00); TOTAL PROTEIN 7.4 g/dL (6.3-8.3)
[2018-07-22 06:24] LABS: AGAP 12; BUN 15 mg/dL (8-22); CHLORIDE 98 mmol/L (98-107); CHOLESTEROL 121 mg/dL (0-200); COSMO 279; CREATININE 0.8 mg/dL (0.7-1.2); ESTIMATED GFR > 60; GLUCOSE 273 mg/dL (70-104); PHOSPHORUS 3.2 mg/dL (2.7-4.5); POTASSIUM 4.4 mmol/L (3.5-5.1); SODIUM 134 mmol/L (136-145); TCO2 24 mmol/L (25-35); TRIGLYCERIDES 145 mg/dL (39-160)
[2018-07-22 06:28] LABS: BASO# 0.04 X1000 (0.0-0.2); BASO% 0.3 % (0.0-0.8); EOS# 0.17 X1000 (0.0-0.7); EOS% 1.4 % (0.0-10.0); HEMATOCRIT 30.6 % (42.0-52.0); HEMOGLOBIN 9.9 g/dL (14.0-18.0); IMM GRAN# 0.29 X1000 (0.0-0.04); IMM GRAN% 2.4 % (0.0-0.5); LYMPH# 1.45 X1000 (1.2-3.4); LYMPH% 12.1 % (20.5-51.1); MCH 31.8 PG (27-31); MCHC 32.4 g/dL (33-37); MCV 98.4 FL (81-99); MPV 12.8 FL (7.4-10.4); NEUT# 8.82 X1000 (1.4-6.5); NEUT% 73.8 % (42.2-75.2); PLT 134 X1000 (130-400); RBC 3.11 XMIL (4.7-6.1); RDW 12.8 % (11.5-14.5); RETIC% 3.23 % (0.8-2.1); RETIC-HE 28.1 PG (28.2-36.6); WBC 11.97 X1000 (4.8-10.8)
[2018-07-22 06:37] LABS: FERRITIN 537 ng/mL (30-400)
[2018-07-22] MEDS: HUMALOG SUBQ SCH ×2 (06:37→12:00)
[2018-07-22 07:23] LABS: PREALBUMIN 15.9 mg/dL (20-40)
--- NOTE | 2018-07-22 07:27 | Diag Imaging Result Doc PS360 ---
EXAM: KUB ABDOMEN 07/22/2018 HISTORY: ileus TECHNIQUE: KUB COMMENT: There are surgical skin clips from the symphysis pubis to the epigastrium. There is gas in the colon including the rectum as well as in small bowel loops over the entire abdomen. The stomach is not distended. Compared to 07/21/2018 there has been no appreciable change. IMPRESSION: Postoperative ileus. Electronically signed by Ivan Huynh 07/22/2018 7:25 AM
--- NOTE | 2018-07-22 07:35 | Diag Imaging Result Doc PS360 ---
EXAM: CHEST-PORTABLE HISTORY: dyspnea TECHNIQUE: Portable chest single view COMPARISON: 07/15/2018 FINDINGS: Poor inspiratory effort. Sternal wires and surgical clips. A nasogastric tube overlies the esophagus and stomach. Pulmonary edema is less pronounced. No consolidation. IMPRESSION: Mild interval improvement Electronically signed by Donald Swenson 07/22/2018 7:32 AM
[2018-07-22] MEDS: PERIDEX MT SCH ×2 (09:59→21:40)
[2018-07-22] MEDS: LEVEMIR SUBQ SCH ×2 (10:00→21:41)
[2018-07-22] MEDS: DULCOLAX PR SCH ×2 (10:00→21:41)
[2018-07-22] MEDS: PROTONIX IV SCH (12:00)
[2018-07-22] MEDS: SODIUM CHLORIDE 0.9% INJ SCH (12:00)
[2018-07-22] MEDS: HUMULIN R SUBQ SCH ×2 (16:36→21:41)
[2018-07-22] MEDS: ARIXTRA SUBQ SCH (17:54)
[2018-07-22] MEDS ORDERED: CATAPRES-TTS-3 TD ONE (18:16)
--- NOTE | 2018-07-22 18:57 | PROGRESS NOTE ---
DATE: 07/22/2018 SUBJECTIVE: The patient continues to complain of abdominal distention and nausea. He has not had a bowel movement despite receiving laxative therapy and an enema. OBJECTIVE: Vital Signs: Temperature 98.3 degrees, blood pressure 174/92, heart rate 97, respirations 21, O2 saturation 97% on room air. General: This is an elderly male lying in bed in no acute distress. Heart: S1, S2 normal. Tachycardic. Lungs: Clear to auscultation bilaterally. No wheezing. No rales. No rhonchi. Abdomen: Distended. Hypoactive bowel sounds. The abdominal incision is clean dry and intact. Extremities: No edema, no cyanosis, no calf tenderness. Neurologic: The patient is alert and oriented x3. LABORATORY DATA: White blood cell count 11, hemoglobin 9.9, hematocrit 30, platelets 134,000. Sodium 134, potassium 4.4, chloride 98, CO2 24, BUN 15, creatinine 0.8, glucose 273. ASSESSMENT AND PLAN: 1. Postoperative ileus. Unchanged. Further management as per the general surgeon. 2. Status post exploratory laparotomy with lysis of adhesions secondary to small bowel obstruction. Management as per the general surgeon. 3. A primary repair of a small-bowel perforation. Continue with antibiotic therapy. 4. Uncontrolled diabetes mellitus type 2. We will increase the Levemir dosage to 40 units twice a day. We will also increase the sliding scale insulin scale to moderate dose. 5. Uncontrolled hypertension. The patient remains n.p.o. We will increase the Catapres patch to TTS 3. Continue with p.r.n. hydralazine. 6. Gastrointestinal prophylaxis. Continue on Protonix. 7. Deep vein thrombosis prophylaxis. We will start the patient on Arixtra. cc: Nasrin Gonsales MD [facility]
[2018-07-22] MEDS: POTASSIUM CHLORIDE IV SCH ×11 (21:30)
[2018-07-22] MEDS: LIPOSYN 20% 500 ML IV SCH (21:30)
[2018-07-22] MEDS: TPN ELECTROLYTES IV SCH ×11 (21:30)
[2018-07-22] MEDS: [UNRECOGNIZED DRUG - OTHER] IV SCH ×11 (21:30)
[2018-07-22] MEDS: MAGNESIUM SULFATE IV SCH ×11 (21:30)
[2018-07-22] MEDS: NICODERM PATCH TD PRN (21:41)
[2018-07-22] MEDS: ATIVAN IV PRN (22:36)
[2018-07-23] MEDS: OFIRMEV 1000 MG/ISOTONIC SOLN 1,000 MG/100 ML BOTTLE IV SCH ×4 (01:28→18:18)
[2018-07-23] MEDS: ZOSYN 3.375 GM in NS 50 ML IV SCH ×4 (04:28→23:35)
[2018-07-23] MEDS: DILAUDID IV PRN ×6 (04:29→21:52)
[2018-07-23 06:18] LABS: BASO# 0.08 X1000 (0.0-0.2); BASO% 0.6 % (0.0-0.8); EOS% 1.6 % (0.0-10.0); HEMATOCRIT 28.8 % (42.0-52.0); HEMOGLOBIN 9.4 g/dL (14.0-18.0); IMM GRAN# 0.29 X1000 (0.0-0.04); IMM GRAN% 2.3 % (0.0-0.5); LYMPH# 1.46 X1000 (1.2-3.4); LYMPH% 11.6 % (20.5-51.1); MCH 32.2 PG (27-31); MCHC 32.6 g/dL (33-37); MCV 98.6 FL (81-99); MONO# 1.13 X1000 (0.11-0.59); MPV 12.8 FL (7.4-10.4); NEUT# 9.38 X1000 (1.4-6.5); NEUT% 74.9 % (42.2-75.2); PLT 157 X1000 (130-400); RBC 2.92 XMIL (4.7-6.1); RDW 12.6 % (11.5-14.5); WBC 12.54 X1000 (4.8-10.8)
[2018-07-23 06:21] LABS: MAGNESIUM 1.9 mg/dL (1.5-2.7); PHOSPHORUS 3.2 mg/dL (2.7-4.5)
[2018-07-23 06:23] LABS: AGAP 12; ALB/GLOB RATIO 0.8; ALBUMIN 3.1 g/dL (3.5-5.0); ALKALINE PHOSPHATASE 112 U/L (32-122); BUN 15 mg/dL (8-22); CALCIUM 8.5 mg/dL (8.8-10.2); CHLORIDE 100 mmol/L (98-107); COSMO 278; CREATININE 0.8 mg/dL (0.7-1.2); ESTIMATED GFR > 60; GLUCOSE 195 mg/dL (70-104); GOT 46 U/L (10-34); GPT 40 U/L (10-44); POTASSIUM 4.1 mmol/L (3.5-5.1); SODIUM 136 mmol/L (136-145); TCO2 24 mmol/L (25-35); TOTAL PROTEIN 7.2 g/dL (6.3-8.3)
[2018-07-23] MEDS: HUMULIN R SUBQ SCH ×4 (06:49→21:52)
[2018-07-23 06:51] LABS: BANDS 10 % (0-1); LYMPHS 12 % (21-51); MONO 2 % (1-9); SEGS 72 % (42-75)
[2018-07-23] MEDS: LEVEMIR SUBQ SCH ×2 (08:11→21:51)
[2018-07-23] MEDS: DULCOLAX PR SCH ×2 (08:13→21:52)
[2018-07-23] MEDS: PERIDEX MT SCH ×2 (08:13→21:52)
[2018-07-23] MEDS: NICODERM PATCH TD PRN (09:47)
[2018-07-23] MEDS: ARIXTRA SUBQ SCH (11:31)
[2018-07-23] MEDS: SODIUM CHLORIDE 0.9% INJ SCH (11:39)
[2018-07-23] MEDS: PROTONIX IV SCH (11:39)
--- NOTE | 2018-07-23 14:02 | PROGRESS NOTE ---
DATE: 07/23/2018 SUBJECTIVE: Mr. Toure was admitted on 07/11/2018. Followed by Dr. Mcbride, came in with abdominal pain. A 67-year-old presented to the emergency room with periumbilical lower abdominal pain, intermittent in nature, but severe, worse with his vomiting and lessened after he stopped vomiting. Again, the morning before admission after he ate some cabbage, had a bowel movement, had not had a bowel movement in over 24 hours and has not passed any gas. He has a history of colon cancer, hypertension, diabetes, coronary artery disease. Past surgical history, partial colectomy, back surgery, open-heart surgery. Admitted with suspicion of proximal small-bowel obstruction. Abdominal, pelvic CT showed proximal small-bowel distention, distal small bowel decompression with transient point in the mid abdomen. He underwent surgery 07/15/2018, exploratory laparotomy, primary repair of small-bowel perforation. He continues to show improvement. I think he pulled his NG tube out. He is comfortable. He has passed gas. He is passing some stool in his colostomy. He wants know if he can start liquids. I am going to wait on surgery to He still has his Titus catheter in. OBJECTIVE: Vital signs: Temperature 97.8 degrees, pulse 108, respirations 20, blood pressure 165/97. HEENT: Pupils are equal and round. Lungs: Clear in all lung alexandre. Cardiovascular: Regular rate without murmur or S3. Abdomen: Soft, nondistended. It still feels a little firm but he reports it feels softer to him. LABORATORY DATA: Urine output 2600 mL. Blood sugars 201, 194 and 210. ASSESSMENT AND PLAN: 1. Postoperative ileus. Continues to show improvement every day. Increase his activity. Consider getting his Titus catheter out. 2. Status post exploratory laparotomy with lysis of adhesions secondary to small-bowel obstruction. 3. Primary repair of small-bowel perforation. Continue present antibiotics. 4. Uncontrolled diabetes mellitus type 2. Continue to pattern sugars, sliding scale. 5. Uncontrolled hypertension. The patient is on a Catapres patch TTS 3. He gets p.r.n. hydralazine. 6. Continue gastrointestinal prophylaxis with Protonix. 7. Deep vein thrombosis prophylaxis. Will be started on Arixtra is the plan. REVIEW OF HIS ORDERS: I do not see any change. He is on Zosyn 3.375 g IV q.6 and Protonix 40 mg IV q.24 hours, insulin detemir 40 mEq subcutaneously b.i.d., Arixtra, which is fondaparinux, 2.5 mg subcutaneous daily, and getting Clinimix. cc: Alexy Cardona MD MTDD
[2018-07-23] MEDS ORDERED: INSULIN PEN NEEDLES ONE (16:48)
[2018-07-23] MEDS: LIPOSYN 20% 500 ML IV SCH (21:53)
[2018-07-23] MEDS: POTASSIUM CHLORIDE IV SCH ×11 (21:58)
[2018-07-23] MEDS: TPN ELECTROLYTES IV SCH ×11 (21:58)
[2018-07-23] MEDS: MAGNESIUM SULFATE IV SCH ×11 (21:58)
[2018-07-23] MEDS: [UNRECOGNIZED DRUG - OTHER] IV SCH ×11 (21:58)
[2018-07-24] MEDS: OFIRMEV 1000 MG/ISOTONIC SOLN 1,000 MG/100 ML BOTTLE IV SCH ×5 (00:43→23:53)
[2018-07-24] MEDS: DILAUDID IV PRN ×7 (02:28→21:48)
[2018-07-24] MEDS: ZOSYN 3.375 GM in NS 50 ML IV SCH ×5 (05:32→23:52)
[2018-07-24] MEDS: APRESOLINE IV PRN (05:33)
[2018-07-24 05:56] LABS: PHOSPHORUS 3.3 mg/dL (2.7-4.5)
[2018-07-24 06:00] LABS: AGAP 11; ALBUMIN 3.1 g/dL (3.5-5.0); BUN 15 mg/dL (8-22); CALCIUM 8.8 mg/dL (8.8-10.2); CHLORIDE 101 mmol/L (98-107); COSMO 277; CREATININE 0.9 mg/dL (0.7-1.2); ESTIMATED GFR > 60; GLUCOSE 215 mg/dL (70-104); POTASSIUM 4.1 mmol/L (3.5-5.1); SODIUM 135 mmol/L (136-145); TCO2 23 mmol/L (25-35)
[2018-07-24] MEDS: HUMULIN R SUBQ SCH ×4 (06:30→21:44)
--- NOTE | 2018-07-24 12:23 | PROGRESS NOTE ---
DATE: 07/24/2018 SUBJECTIVE: Mr. Toure is sitting up in a chair. Feels much better. Bowels are moving. Passing gas and has had bowel movements. NG tube is out of place. He still has a Titus catheter in. OBJECTIVE: Vitals: Temperature 99.2 degrees, pulse 118, respirations 18, blood pressure 148/82. Pupils are equal and round. Lungs are clear in all lung alexandre. Cardiovascular Examination: Regular rhythm and rate without murmur or S3. Abdomen: Soft. Positive bowel sounds. No pedal edema. Titus catheter in place. Urine output 2600 mL. ASSESSMENT AND PLAN: 1. Postoperative ileus, showing steady improvement. We will take his Titus catheter out today. 2. Status post exploratory laparotomy, lysis of adhesions secondary to small bowel obstruction. 3. Primary repair of small-bowel perforation. Continue present antibiotics. 4. Diabetes mellitus type 2. Continue to watch pattern of sugars. Continue sliding scale. 5. Uncontrolled hypertension. Blood pressure has been under good control. 6. Continue gastrointestinal prophylaxis and deep venous thrombosis prophylaxis. REVIEW OF HIS ORDERS: I think we can try some clear liquids. We will discontinue his Titus catheter. He is getting physical therapy, doing pretty well. cc: Alexy Cardona MD
[2018-07-24] MEDS: DULCOLAX PR SCH ×4 (12:27→22:06)
[2018-07-24] MEDS: PERIDEX MT SCH ×2 (12:28→21:44)
[2018-07-24] MEDS: ARIXTRA SUBQ SCH (12:28)
[2018-07-24] MEDS: LEVEMIR SUBQ SCH ×2 (12:28→21:43)
[2018-07-24] MEDS: PROTONIX IV SCH (12:36)
[2018-07-24] MEDS: SODIUM CHLORIDE 0.9% INJ SCH (12:36)
[2018-07-24] MEDS: FLOMAX PO SCH ×2 (12:59→21:44)
--- NOTE | 2018-07-24 16:29 | PROGRESS NOTE ---
DATE: 07/24/2018 Mr. Toure is status post exploratory laparotomy for adhesions and small-bowel obstruction. He also had to have a repair of a puncture of his small bowel. It has least been a week since surgery, and remains distended. His NG tube is out. His Titus catheter tube is out. He states that he is having some flatus, and we were contemplating about starting clear liquids. His white blood cell count is slightly elevated at 12.5 and hematocrit is 29%. Electrolytes are within normal limits. BUN is 15 and creatinine 0.9. He is receiving TPN. Now that 2 of his tubes are out, his NG and Titus catheter tube, it will be easier to sit him up and move him around in hopes that that will also help with his abdominal distention. He has a positive attitude, and states that he feels better but his abdomen is still distended. cc: MD Alexy Ruiz MD
[2018-07-24] MEDS: MAGNESIUM SULFATE IV SCH ×11 (21:46)
[2018-07-24] MEDS: TPN ELECTROLYTES IV SCH ×11 (21:46)
[2018-07-24] MEDS: POTASSIUM CHLORIDE IV SCH ×11 (21:46)
[2018-07-24] MEDS: LIPOSYN 20% 500 ML IV SCH (21:46)
[2018-07-24] MEDS: [UNRECOGNIZED DRUG - OTHER] IV SCH ×11 (21:46)
[2018-07-25] MEDS: DILAUDID IV PRN ×6 (01:37→21:01)
[2018-07-25] MEDS: OFIRMEV 1000 MG/ISOTONIC SOLN 1,000 MG/100 ML BOTTLE IV SCH ×3 (05:54→17:21)
[2018-07-25] MEDS: ZOSYN 3.375 GM in NS 50 ML IV SCH ×3 (05:54→16:43)
[2018-07-25] MEDS: HUMULIN R SUBQ SCH ×3 (06:43→21:10)
[2018-07-25 07:10] LABS: AGAP 12; ALBUMIN 3.2 g/dL (3.5-5.0); BUN 18 mg/dL (8-22); CHLORIDE 103 mmol/L (98-107); COSMO 283; CREATININE 0.9 mg/dL (0.7-1.2); ESTIMATED GFR > 60; GLUCOSE 232 mg/dL (70-104); MAGNESIUM 2.1 mg/dL (1.5-2.7); PHOSPHORUS 3.2 mg/dL (2.7-4.5); POTASSIUM 4.5 mmol/L (3.5-5.1); SODIUM 137 mmol/L (136-145); TCO2 22 mmol/L (25-35)
[2018-07-25] MEDS: PERIDEX MT SCH ×2 (09:41→20:57)
[2018-07-25] MEDS: LEVEMIR SUBQ SCH (09:41)
[2018-07-25] MEDS: FLOMAX PO SCH (09:41)
[2018-07-25] MEDS: ARIXTRA SUBQ SCH (09:41)
[2018-07-25] MEDS: DULCOLAX PR SCH ×2 (09:43→18:16)
[2018-07-25] MEDS: PROTONIX IV SCH (11:14)
[2018-07-25] MEDS: SODIUM CHLORIDE 0.9% INJ SCH (11:14)
--- NOTE | 2018-07-25 13:18 | PROGRESS NOTE ---
DATE: 07/25/2018 SUBJECTIVE: Mr. Toure is feeling much better, stronger. His abdomen is less uncomfortable and he is having bowel movements. OBJECTIVE: Temperature 98.7 degrees, pulse 107, respirations 18, blood pressure 143/91. Pupils are equal and round. CVP less than 6 cm. Lungs are clear in all lung alexandre. Cardiovascular Examination: Regular rhythm and rate without murmur or S3. Abdomen is soft. Incision looks good. Positive bowel sounds. Urine output 2900 mL. ASSESSMENT AND PLAN: 1. Status post exploratory laparotomy for adhesions and small bowel obstruction. He had repair of puncture of small bowel. It has been at least a week since surgery. He remains distended. Nasogastric tube is out. His Titus catheter is out as well. He is having some flatus and contemplating starting some liquids. Electrolytes and renal function look good. 2. Postoperative ileus, seems to be improving. 3. Primary repair of small bowel obstruction. Continue antibiotics for now. 4. Diabetes mellitus type 2. Continue to watch his pattern of sugars. 5. Blood pressure looks controlled. 6. Continue gastrointestinal prophylaxis. REVIEW OF HIS ORDERS: He is getting Dilaudid 1 mg IV q.3 hours p.r.n., acetaminophen IV 1000 mg q.6 hours p.r.n. He is on some D10 and fat emulsions IV. We have him on Arixtra which is fondaparinux 2.5 mg subcutaneous daily, insulin detemir 40 units subcutaneous b.i.d., and Ativan 0.5 mg q.4 hours p.r.n., nicotine patch 21 mg daily, Protonix 40 mg IV q.24 hours, Flomax 0.4 mg p.o. b.i.d., and Zosyn 3.375 g q.6 hours. Titus catheter is out. Seems to be making progress. I think Dr. Kelley is going to put him on some clear liquids. cc: Alexy Cardona MD
--- NOTE | 2018-07-25 14:57 | PROGRESS NOTE ---
DATE: 07/25/2018 SUBJECTIVE: Mr. Toure'arnoldo abdomen remains distended. He states that he is having flatus. He sipped on some clear liquids. Has had no nausea and vomiting. OBJECTIVE: His NG tube is out. His Titus catheter tube is out. His heart rates is 107, blood pressure 143/91, O2 saturation 98%. He is afebrile. Electrolytes are within normal limits. BUN is 18, creatinine 0.9. His sugar remains in the 200s. He is on TPN. PLAN: I have asked him to increase his activity. cc: MD Alexy Ruiz MD
[2018-07-25] MEDS ORDERED: POTASSIUM CHLORIDE IV SCH ×22 (16:00→20:00)
[2018-07-25] MEDS ORDERED: TPN ELECTROLYTES IV SCH ×22 (16:00→20:00)
[2018-07-25] MEDS ORDERED: MAGNESIUM SULFATE IV SCH ×22 (16:00→20:00)
[2018-07-25] MEDS ORDERED: [UNRECOGNIZED DRUG - OTHER] IV SCH ×22 (16:00→20:00)
[2018-07-25] MEDS: LIPOSYN 20% 500 ML IV SCH (20:59)
[2018-07-26] MEDS: DILAUDID IV PRN ×6 (00:18→23:09)
[2018-07-26] MEDS: OFIRMEV 1000 MG/ISOTONIC SOLN 1,000 MG/100 ML BOTTLE IV SCH ×5 (00:18→23:09)
[2018-07-26] MEDS: ZOSYN 3.375 GM in NS 50 ML IV SCH ×5 (00:18→23:09)
[2018-07-26] MEDS: DULCOLAX PR SCH ×3 (05:29→21:37)
[2018-07-26] MEDS: LEVEMIR SUBQ SCH ×3 (05:30→21:37)
[2018-07-26] MEDS: FLOMAX PO SCH ×3 (05:30→21:37)
[2018-07-26 06:30] LABS: ALB/GLOB RATIO 0.9; ALBUMIN 3.4 g/dL (3.5-5.0); DIRECT BILIRUBIN 0.3 mg/dL (0.00-0.20); TOTAL BILIRUBIN 0.68 mg/dL (0.20-1.00); TOTAL PROTEIN 7.3 g/dL (6.3-8.3)
[2018-07-26 06:33] LABS: AGAP 9; ALBUMIN 3.2 g/dL (3.5-5.0); BUN 18 mg/dL (8-22); CALCIUM 8.9 mg/dL (8.8-10.2); CHLORIDE 102 mmol/L (98-107); COSMO 281; CREATININE 0.8 mg/dL (0.7-1.2); ESTIMATED GFR > 60; GLUCOSE 252 mg/dL (70-104); PHOSPHORUS 3.3 mg/dL (2.7-4.5); POTASSIUM 4.6 mmol/L (3.5-5.1); SODIUM 135 mmol/L (136-145); TCO2 24 mmol/L (25-35)
[2018-07-26] MEDS: HUMULIN R SUBQ SCH ×5 (07:00→22:42)
[2018-07-26] MEDS: PERIDEX MT SCH ×2 (10:22→21:37)
[2018-07-26] MEDS: ARIXTRA SUBQ SCH (10:23)
[2018-07-26] MEDS: NICODERM PATCH TD PRN (10:41)
[2018-07-26] MEDS: SODIUM CHLORIDE 0.9% INJ SCH (11:24)
[2018-07-26] MEDS: PROTONIX IV SCH (11:24)
--- NOTE | 2018-07-26 14:43 | PROGRESS NOTE ---
DATE: 07/26/2018 SUBJECTIVE: Mr. Toure is feeling better. We advanced him to full liquids. Belly still seems to be a little distended, but he says he is comfortable. He is getting around moving some. No pedal edema. OBJECTIVE: Vital Signs: Temperature 98.2 degrees, pulse 100, respirations 18, blood pressure 147/83. HEENT: Pupils are equal and round. Lungs: Clear in all lung alexandre. Cardiovascular: Regular rhythm and rate without murmur or S3. Abdomen: Soft. Skin is warm and dry. Urine output is 1900 mL. Blood sugar 277, 262, 289. ASSESSMENT/PLAN: 1. Titus catheter is out. NG tube is out. Still a little bit of distention in his abdomen. 2. We have advanced his diet to full liquids. 3. He is status post exploratory laparotomy for adhesions and small bowel obstruction. Had repair of punctures, small-bowel. He would like to go home. So, continue physical therapy, postop ileus. This has been slow to resolve. 4. Diabetes mellitus type 2. Sugars look under good control. 5. Blood pressure is under good control. I do not see any change. He is on Arixtra 2.5 mg subcu daily. 6. Also mention benign prostatic hypertrophy. He is on is Flomax 0.4 mg b.i.d. Actually, I started that before we took the catheter out so he may not have to go home with that. cc: Alexy Cardona MD
--- NOTE | 2018-07-26 15:06 | PROGRESS NOTE ---
DATE: 07/26/2018 SUBJECTIVE: Mr. Boaz Toure continues without an NG tube. He does not feel as well today. His abdomen remains distended, but he states he is passing flatus. He is taking liquids. He is still getting peripheral TPN. His midline incision seems to be healing well. His abdomen does not have increased tenderness. I think we are fighting a prolonged postoperative ileus because of the amount of adhesions he has had. Will continue to ask him to increase his activity. We will keep TPN and lipids going and encourage p.o. intake as his abdominal distention allows it. cc: MD Alexy Ruiz MD
[2018-07-26] MEDS ORDERED: INSULIN PEN NEEDLES ONE (15:15)
[2018-07-26] MEDS: [UNRECOGNIZED DRUG - OTHER] IV SCH ×11 (21:20)
[2018-07-26] MEDS: TPN ELECTROLYTES IV SCH ×11 (21:20)
[2018-07-26] MEDS: POTASSIUM CHLORIDE IV SCH ×11 (21:20)
[2018-07-26] MEDS: MAGNESIUM SULFATE IV SCH ×11 (21:20)
[2018-07-26] MEDS: LIPOSYN 20% 500 ML IV SCH (21:21)
[2018-07-27] MEDS: DILAUDID IV PRN ×7 (02:08→22:51)
[2018-07-27] MEDS: ATIVAN IV PRN (02:22)
[2018-07-27 06:42] LABS: AGAP 12; ALBUMIN 3.2 g/dL (3.5-5.0); BUN 18 mg/dL (8-22); CALCIUM 8.9 mg/dL (8.8-10.2); CHLORIDE 100 mmol/L (98-107); COSMO 278; CREATININE 0.9 mg/dL (0.7-1.2); ESTIMATED GFR > 60; GLUCOSE 238 mg/dL (70-104); MAGNESIUM 1.9 mg/dL (1.5-2.7); PHOSPHORUS 3.3 mg/dL (2.7-4.5); POTASSIUM 4.2 mmol/L (3.5-5.1); SODIUM 134 mmol/L (136-145); TCO2 22 mmol/L (25-35)
[2018-07-27] MEDS: HUMULIN R SUBQ SCH ×5 (06:42→22:51)
[2018-07-27] MEDS: OFIRMEV 1000 MG/ISOTONIC SOLN 1,000 MG/100 ML BOTTLE IV SCH ×4 (06:43→23:10)
[2018-07-27] MEDS: ZOSYN 3.375 GM in NS 50 ML IV SCH ×4 (06:43→22:50)
[2018-07-27] MEDS: PERIDEX MT SCH ×2 (10:33→22:50)
[2018-07-27] MEDS: LEVEMIR SUBQ SCH ×2 (10:34→22:50)
[2018-07-27] MEDS: FLOMAX PO SCH ×2 (10:35→22:51)
[2018-07-27] MEDS: DULCOLAX PR SCH ×2 (10:35→22:51)
[2018-07-27] MEDS: ARIXTRA SUBQ SCH (10:35)
[2018-07-27] MEDS: PROTONIX IV SCH (11:30)
[2018-07-27] MEDS: SODIUM CHLORIDE 0.9% INJ SCH (11:30)
--- NOTE | 2018-07-27 11:44 | PROGRESS NOTE ---
DATE: 07/27/2018 SUBJECTIVE: Mr. Toure's abdomen still feels tense and he is tolerating liquids. Still having bowel movements. His abdomen is still a little uncomfortable for him. OBJECTIVE: Vital Signs: Temperature 98.3 degrees, pulse 108, respirations 16, blood pressure 141/88. Eyes: Pupils equal, round. Lungs: Clear in all lung alexandre. Cardiovascular: Regular rhythm and rate without murmur or S3. Abdomen: Mildly distended. No focal tenderness. Midline incision looks good, clean and dry. LAB: Blood sugars 260, 260, and 220. ASSESSMENT AND PLAN: 1. Continues to do without nasogastric tube. His abdomen still remains distended. He is passing flatus and passing stools. He is on liquids and getting peripheral total parenteral nutrition. Midline incision is doing well, so still dealing with prolonged postoperative ileus because of the amount of adhesions in his belly, status post lysis of adhesions. 2. Continue his present diet with liquids. 3. Diabetes mellitus type 2. Sugars under good control. 4. Blood pressure appears under good control. 5. Checked electrolytes again today. They look good. Sodium 134, potassium 4.2, chloride 100, BUN 18, creatinine 0.9. 6. Titus catheter is out. On Flomax 0.4 mg a day. 7. We have him on fondaparinux 2.5 mg subcutaneous daily for deep venous thrombosis prophylaxis. cc: Alexy Cardona MD
--- NOTE | 2018-07-27 13:52 | GENERAL SURGERY PROGRESS NOTE ---
DATE: 07/27/2018 SUBJECTIVE: The patient is doing okay. He is tolerating some sips of clears this morning. No nausea or vomiting. He has not passed gas yet. He is eager to walk. He also complains of some sinus congestion. OBJECTIVE: Vital Signs: He is afebrile. Vital signs are stable. General: He is awake, alert, and oriented x4. No acute distress. Urine output 2220 mL yesterday. CV: Regular rate and rhythm. Respiratory: No work of breathing. GI: Soft. Mild distention. Somewhat sluggish bowel sounds. Incisional dressing is clean and dry. He is appropriately tender. LABORATORY: None today. ASSESSMENT AND PLAN: A 62-year-old male postoperative day 3 exploratory laparotomy with lysis of adhesions for bowel obstruction. He appears to be making slow progress. We are awaiting return of bowel function. I will give him a Dulcolax suppository today and order saline nasal spray as needed for congestion. We will let him have clear liquids today. If he tolerates that, we will saline lock his IV tomorrow. cc: MD Alexy Mai MD
--- NOTE | 2018-07-27 13:53 | GENERAL SURGERY PROGRESS NOTE ---
DATE: 07/27/2018 SUBJECTIVE: He is doing okay. No severe abdominal pain, nausea, or vomiting. He has passed some gas and tolerated a liquid diet. OBJECTIVE: Vital Signs: He is afebrile. Vital signs are stable. Urine output 1850 mL yesterday. General: He is alert and oriented x4, in no acute distress. GI: Soft. Mild distention. He does have bowel sounds. Incisional dressing is clean and dry. LABORATORY: Electrolytes reviewed and unremarkable today. ASSESSMENT AND PLAN: 67-year-old male status post exploratory laparotomy with lysis of adhesions and postoperative ileus. I will advance him to a soft diet today. If he tolerates this, I think we can start backing off the peripheral nutrition. cc: MD Alexy Mai MD
[2018-07-27] MEDS: TPN ELECTROLYTES IV SCH ×11 (22:48)
[2018-07-27] MEDS: MAGNESIUM SULFATE IV SCH ×11 (22:48)
[2018-07-27] MEDS: LIPOSYN 20% 500 ML IV SCH (22:48)
[2018-07-27] MEDS: POTASSIUM CHLORIDE IV SCH ×11 (22:48)
[2018-07-27] MEDS: [UNRECOGNIZED DRUG - OTHER] IV SCH ×11 (22:48)
[2018-07-28] MEDS: DILAUDID IV PRN ×7 (01:40→21:43)
[2018-07-28] MEDS: OFIRMEV 1000 MG/ISOTONIC SOLN 1,000 MG/100 ML BOTTLE IV SCH ×4 (05:53→23:58)
[2018-07-28] MEDS: ZOSYN 3.375 GM in NS 50 ML IV SCH ×4 (05:53→23:57)
[2018-07-28] MEDS: HUMULIN R SUBQ SCH ×4 (06:15→21:49)
[2018-07-28 06:26] LABS: AGAP 11; ALBUMIN 3.2 g/dL (3.5-5.0); BUN 18 mg/dL (8-22); CALCIUM 8.9 mg/dL (8.8-10.2); CHLORIDE 103 mmol/L (98-107); COSMO 284; CREATININE 0.8 mg/dL (0.7-1.2); ESTIMATED GFR > 60; GLUCOSE 240 mg/dL (70-104); MAGNESIUM 1.9 mg/dL (1.5-2.7); POTASSIUM 4.3 mmol/L (3.5-5.1); SODIUM 137 mmol/L (136-145); TCO2 23 mmol/L (25-35)
[2018-07-28] MEDS: ARIXTRA SUBQ SCH (08:48)
[2018-07-28] MEDS: FLOMAX PO SCH ×2 (08:49→21:47)
[2018-07-28] MEDS: PERIDEX MT SCH ×2 (08:49→21:48)
[2018-07-28] MEDS: DULCOLAX PR SCH ×2 (08:49→21:48)
[2018-07-28] MEDS: LEVEMIR SUBQ SCH ×2 (08:49→21:48)
[2018-07-28] MEDS: NICODERM PATCH TD PRN (10:23)
--- NOTE | 2018-07-28 10:58 | GENERAL SURGERY PROGRESS NOTE ---
DATE: 07/28/2018 SUBJECTIVE: The patient has no new complaints. He is eating a little food without vomiting. He has also passed gas and had a small bowel movement. OBJECTIVE: He is afebrile. Vital signs are stable.General: He is awake, alert, oriented x4. No acute distress. Gastrointestinal: Somewhat firm and distended, but he does have bowel sounds. He has minimal tenderness. His incision is clean, dry, and intact. LABORATORY: Electrolytes reviewed and unremarkable. ASSESSMENT AND PLAN: A 67-year-old male status post exploratory laparotomy with lysis of adhesions. He has had a prolonged postoperative ileus that appears to be slowly resolving. I have encouraged him to continue to eat as tolerated and ambulate as tolerated. I think he can stop his peripheral nutrition if he continues to tolerate his diet today, and it should be able to be stopped tomorrow. cc: MD Alexy Mai MD
[2018-07-28] MEDS: PROTONIX IV SCH (11:54)
[2018-07-28] MEDS: SODIUM CHLORIDE 0.9% INJ SCH (11:54)
--- NOTE | 2018-07-28 14:24 | PROGRESS NOTE ---
DATE: 07/28/2018 SUBJECTIVE: Mr. Toure is doing better. He feels like his abdomen is a little softer and it seems a little softer on exam than yesterday. OBJECTIVE: Vital signs: Temp 98.6 degrees, pulse 98, respirations 18, blood pressure 160/96. HEENT: Pupils are equal and round. Lungs: Clear in all lung alexandre. Cardiovascular: Regular rhythm and rate without murmur or S3. Abdomen: Softer. It still has some mild distention. He is not hurting. Urine output is 4300 mL. ASSESSMENT AND PLAN: 1. This is a 67-year-old status post exploratory laparotomy with extensive lysis of adhesions and prolonged postoperative ileus. Appears to be slowly resolving. His abdomen does seem a little better. He is tolerating full liquids. Continue to get him up with physical therapy. 2. Diabetes mellitus type 2. Sugar is under good control. 3. Blood pressure under control. 4. Titus catheter is out. He is on Flomax. Seems to be voiding okay. 5. I do not see any change in his orders. Continue physical therapy. Hopefully he gets to go home soon. At the present time he is still on Zosyn 3.375 g IV q.6 and he is getting Arixtra 2.5 mg daily. cc: Alexy Cardona MD
[2018-07-28] MEDS: LIPOSYN 20% 500 ML IV SCH (21:47)
[2018-07-28] MEDS: TPN ELECTROLYTES IV SCH ×11 (21:47)
[2018-07-28] MEDS: POTASSIUM CHLORIDE IV SCH ×11 (21:47)
[2018-07-28] MEDS: MAGNESIUM SULFATE IV SCH ×11 (21:47)
[2018-07-28] MEDS: [UNRECOGNIZED DRUG - OTHER] IV SCH ×11 (21:47)
[2018-07-28] MEDS: ATIVAN IV PRN (22:38)
[2018-07-29] MEDS: DILAUDID IV PRN ×7 (00:38→21:58)
[2018-07-29] MEDS: ZOSYN 3.375 GM in NS 50 ML IV SCH ×4 (05:01→22:21)
[2018-07-29] MEDS: OFIRMEV 1000 MG/ISOTONIC SOLN 1,000 MG/100 ML BOTTLE IV SCH (05:01)
[2018-07-29] MEDS ORDERED: INSULIN PEN NEEDLES ONE (06:29)
[2018-07-29] MEDS: HUMULIN R SUBQ SCH ×4 (08:13→22:04)
[2018-07-29] MEDS: DULCOLAX PR SCH ×2 (08:38→22:05)
[2018-07-29] MEDS: ARIXTRA SUBQ SCH (08:38)
[2018-07-29] MEDS: FLOMAX PO SCH ×2 (08:38→22:05)
[2018-07-29] MEDS: PERIDEX MT SCH ×2 (08:41→22:05)
[2018-07-29] MEDS: LEVEMIR SUBQ SCH ×2 (08:42→22:02)
[2018-07-29] MEDS: NICODERM PATCH TD PRN (10:24)
[2018-07-29 11:16] LABS: AGAP 11; ALB/GLOB RATIO 0.7; ALBUMIN 3.4 g/dL (3.5-5.0); ALKALINE PHOSPHATASE 137 U/L (32-122); BUN 16 mg/dL (8-22); CALCIUM 9.1 mg/dL (8.8-10.2); CHLORIDE 98 mmol/L (98-107); CHOLESTEROL 131 mg/dL (0-200); COSMO 278; CREATININE 0.8 mg/dL (0.7-1.2); ESTIMATED GFR > 60; GLUCOSE 293 mg/dL (70-104); GOT 29 U/L (10-34); GPT 32 U/L (10-44); MAGNESIUM 1.8 mg/dL (1.5-2.7); PHOSPHORUS 2.9 mg/dL (2.7-4.5); POTASSIUM 4.5 mmol/L (3.5-5.1); SODIUM 133 mmol/L (136-145); TCO2 24 mmol/L (25-35); TOTAL BILIRUBIN 0.54 mg/dL (0.20-1.00); TOTAL PROTEIN 8.2 g/dL (6.3-8.3); TRIGLYCERIDES 158 mg/dL (39-160)
[2018-07-29] MEDS: SODIUM CHLORIDE 0.9% INJ SCH (11:55)
[2018-07-29] MEDS: PROTONIX IV SCH (11:56)
--- NOTE | 2018-07-29 14:00 | PROGRESS NOTE ---
DATE: 07/29/2018 SUBJECTIVE: Mr. Toure is better. He feels like his abdomen is a little softer. He is tolerating liquids and tolerating a little bit of soft diet. OBJECTIVE: Vital Signs: Temperature 98.4 degrees, pulse 100, respirations 20, blood pressure 152/90. HEENT: Pupils are equal. CVP less than 6 cm. Lungs: Clear in all lung alexandre. Cardiovascular: Regular rhythm and rate without murmur or S3. LABORATORY DATA: Blood sugars 272, 259, 274. ASSESSMENT AND PLAN: 1. A 67-year-old status post exploratory laparotomy, extensive lysis of adhesions, a very slow, protracted postoperative ileus which seems to be slowly getting better. Abdomen seems a little softer. Bowels are moving. 2. Diabetes mellitus type 2. Sugars running a little bit on the high side. Continue to follow. 3. Blood pressure appears under good control. 4. Titus catheter is out. He is on Flomax. He is voiding okay. 5. General weakness and deconditioning. Continue to increase his activity. Physical therapy is involved. It looks like we are making progress. He is on Arixtra 2.5 mg daily for postoperative deep venous thrombosis prophylaxis. We still have him on Zosyn 3.375 g IV q.6 hours, and he is taking insulin detemir 40 units subcutaneous b.i.d., and he is on nicotine patch 21 mg daily, Protonix 40 mg IV q.24 hours. cc: Alexy Cardona MD
--- NOTE | 2018-07-29 14:16 | PROGRESS NOTE ---
DATE: 07/29/2018 SUBJECTIVE: Mr. Boaz Toure continues to be distended in his abdomen. He is tolerating some of his diet. He states that he is having some flatus and small bowel movements, but his abdomen is distended and it becomes uncomfortable at times. He becomes nauseated at times. He is still getting his TPN. OBJECTIVE: Vital Signs: His heart rate is 98 to 102, blood pressure is 152/90. O2 saturation 97%. He is afebrile. Exam: He is on TPN. His sugars been a little bit high around 200 to 275. He is on IV Zosyn prophylactically. LABORATORY: His electrolytes are within normal limits. BUN is 16, creatinine is 0.8. His liver function tests are essentially normal. PLAN: We are going to get flat and upright abdominal films again tomorrow. We are increasing his activity. We need to look to stop his TPN and see if he can take enough p.o. diet. cc: MD Alexy Ruiz MD
[2018-07-29] MEDS: MAGNESIUM SULFATE IV SCH ×11 (22:06)
[2018-07-29] MEDS: POTASSIUM CHLORIDE IV SCH ×11 (22:06)
[2018-07-29] MEDS: [UNRECOGNIZED DRUG - OTHER] IV SCH ×11 (22:06)
[2018-07-29] MEDS: TPN ELECTROLYTES IV SCH ×11 (22:06)
[2018-07-29] MEDS: LIPOSYN 20% 500 ML IV SCH (22:12)
[2018-07-30] MEDS: DILAUDID IV PRN ×7 (02:05→23:58)
[2018-07-30] MEDS: ZOSYN 3.375 GM in NS 50 ML IV SCH ×4 (05:15→23:58)
[2018-07-30 06:21] LABS: BASO# 0.02 X1000 (0.0-0.2); BASO% 0.2 % (0.0-0.8); EOS# 0.22 X1000 (0.0-0.7); EOS% 2.5 % (0.0-10.0); HEMATOCRIT 32.1 % (42.0-52.0); HEMOGLOBIN 10.5 g/dL (14.0-18.0); LYMPH# 1.36 X1000 (1.2-3.4); LYMPH% 15.7 % (20.5-51.1); MCHC 32.7 g/dL (33-37); MCV 97.9 FL (81-99); MONO% 10.4 % (1.7-9.3); MPV 12.6 FL (7.4-10.4); NEUT# 6.15 X1000 (1.4-6.5); NEUT% 71.2 % (42.2-75.2); PLT 324 X1000 (130-400); RBC 3.28 XMIL (4.7-6.1); RDW 12.7 % (11.5-14.5); WBC 8.65 X1000 (4.8-10.8)
[2018-07-30] MEDS: HUMULIN R SUBQ SCH ×4 (06:24→20:21)
[2018-07-30 06:36] LABS: AGAP 12; BUN 19 mg/dL (8-22); CALCIUM 9.5 mg/dL (8.8-10.2); CHLORIDE 101 mmol/L (98-107); COSMO 286; CREATININE 0.8 mg/dL (0.7-1.2); ESTIMATED GFR > 60; GLUCOSE 240 mg/dL (70-104); POTASSIUM 4.5 mmol/L (3.5-5.1); SODIUM 138 mmol/L (136-145); TCO2 25 mmol/L (25-35)
--- NOTE | 2018-07-30 08:28 | Diag Imaging Result Doc PS360 ---
EXAM: FLAT/UPRIGHT ABD/1 VIEW CHEST HISTORY: post op ileus TECHNIQUE: Flat and upright with chest, three views COMPARISON: 07/22/2018 FINDINGS: Poor inspiratory effort. No cardiomegaly. No change in the left subclavian portacatheter. Atelectasis versus infiltrates in the lung bases. No free air beneath the diaphragm. There are multiple midline skin yohana. There are air distended bowel loops with several air-fluid levels. No improvement compared to the prior studies. The bowel loops may in fact be slightly more distended. No organomegaly. IMPRESSION: Persistent ileus Electronically signed by Donald Swenson 07/30/2018 8:26 AM
[2018-07-30] MEDS: FLOMAX PO SCH ×2 (08:36→20:20)
[2018-07-30] MEDS: ARIXTRA SUBQ SCH (08:36)
[2018-07-30] MEDS: LEVEMIR SUBQ SCH ×2 (08:37→20:22)
[2018-07-30] MEDS: DULCOLAX PR SCH (08:39)
[2018-07-30] MEDS: PERIDEX MT SCH ×2 (08:40→20:20)
[2018-07-30 11:17] LABS: MAGNESIUM 1.8 mg/dL (1.5-2.7); PHOSPHORUS 3.6 mg/dL (2.7-4.5)
--- NOTE | 2018-07-30 11:38 | PROGRESS NOTE ---
DATE: 07/30/2018 SUBJECTIVE: Mr. Boaz Toure continues to have abdominal distention. Abdominal films today continue to suggest air and fluid in the small bowel. He states that he has some flatus and small bowel movements. He is eating some of his meal, but he is still getting TPN. He was operated on 07/15/2018 and continues to have abdominal distention. He underwent extensive lysis of adhesions at that time, and I was pretty comfortable that his entire small bowel adhesions were lysed. He remains in good spirits. His heart rate is 98 to 102, blood pressure 156/82, O2 saturation 98%. He is afebrile. He is voiding without a Titus. He eats about 25% of his meals. His white blood cell count is normal. His hematocrit is 32%. Electrolytes are within normal limits. His sugars have been a little bit too high in the 200s. PLAN: I will review his films with the radiologist. We will consider Gastrografin enema to make sure there was no evidence of any a colon obstruction; maybe that will help stimulate his colon. He is on IV Zosyn and will consider stopping that in the next several days. cc: MD Red Ruiz MD
[2018-07-30] MEDS: PROTONIX IV SCH (16:53)
[2018-07-30] MEDS: SODIUM CHLORIDE 0.9% INJ SCH (16:53)
--- NOTE | 2018-07-30 18:13 | PROGRESS NOTE ---
DATE: 07/30/2018 SUBJECTIVE: Patient has no major complaints. OBJECTIVE: He is sitting up eating. Blood pressure is 161/95, heart rate of 108, respiratory rate 22, temperature 98.1 degrees.Cardiovascular: Regular rate and rhythm. Pulmonary: Bilateral breath sounds. GI: Soft, protuberant. No major issues. He has bowel sounds. LABORATORY DATA: White count is 8, hemoglobin and hematocrit 10 and 32, platelets 324,000. Basic was normal. Glucose is 240. PROBLEM LIST: 1. Bowel obstruction status post exploratory laparotomy, lysis adhesions, postop ileus. He seems to be doing better. Dr. Kelley is following. Abdominal x-ray shows persistent ileus. I think Dr. Kelley is planning Gastrografin enema and we will continue to follow. 2. Type 2 diabetes. He is on total parenteral nutrition. Sugars are still elevated which I think I remember starting him on some Lantus. I think he is getting insulin in his bag and he is on detemir 40 b.i.d. and he is usually not on anything so the 40 b.i.d. Levemir is been since the . I think we can bump that up a little bit more, I am just going to try at 45. I think when he is off the TPN we will have to adjust down. DISPOSITION: Pending his clinical status, he is getting closer to being stable but he is still not quite there yet. We are going to continue with PT and see how he does over the next several days. cc: Red Colon MD
[2018-07-30] MEDS: LIPOSYN 20% 500 ML IV SCH (20:20)
[2018-07-30] MEDS ORDERED: POTASSIUM CHLORIDE IV SCH ×11 (21:00)
[2018-07-30] MEDS ORDERED: TPN ELECTROLYTES IV SCH ×11 (21:00)
[2018-07-30] MEDS ORDERED: [UNRECOGNIZED DRUG - OTHER] IV SCH ×11 (21:00)
[2018-07-30] MEDS ORDERED: MAGNESIUM SULFATE IV SCH ×11 (21:00)
[2018-07-30] MEDS: TPN ELECTROLYTES IV SCH ×11 (21:29)
[2018-07-30] MEDS: POTASSIUM CHLORIDE IV SCH ×11 (21:29)
[2018-07-30] MEDS: MAGNESIUM SULFATE IV SCH ×11 (21:29)
[2018-07-30] MEDS: [UNRECOGNIZED DRUG - OTHER] IV SCH ×11 (21:29)
[2018-07-31] MEDS: DULCOLAX PR SCH ×3 (01:42→20:56)
[2018-07-31] MEDS: DILAUDID IV PRN ×7 (03:44→23:46)
[2018-07-31 05:45] LABS: BASO# 0.01 X1000 (0.0-0.2); BASO% 0.1 % (0.0-0.8); EOS# 0.27 X1000 (0.0-0.7); EOS% 3.3 % (0.0-10.0); HEMATOCRIT 30.8 % (42.0-52.0); HEMOGLOBIN 9.8 g/dL (14.0-18.0); IMM GRAN# 0.08 X1000 (0.0-0.04); LYMPH% 17.3 % (20.5-51.1); MCH 30.5 PG (27-31); MCHC 31.8 g/dL (33-37); MONO# 0.94 X1000 (0.11-0.59); MONO% 11.6 % (1.7-9.3); MPV 12.1 FL (7.4-10.4); NEUT# 5.37 X1000 (1.4-6.5); NEUT% 66.7 % (42.2-75.2); PLT 326 X1000 (130-400); RBC 3.21 XMIL (4.7-6.1); RDW 12.7 % (11.5-14.5); WBC 8.07 X1000 (4.8-10.8)
[2018-07-31 06:14] LABS: AGAP 10; ALBUMIN 3.5 g/dL (3.5-5.0); BUN 23 mg/dL (8-22); CALCIUM 9.7 mg/dL (8.8-10.2); CHLORIDE 101 mmol/L (98-107); COSMO 282; CREATININE 0.9 mg/dL (0.7-1.2); ESTIMATED GFR > 60; GLUCOSE 175 mg/dL (70-104); MAGNESIUM 1.7 mg/dL (1.5-2.7); PHOSPHORUS 3.8 mg/dL (2.7-4.5); POTASSIUM 4.6 mmol/L (3.5-5.1); SODIUM 137 mmol/L (136-145); TCO2 26 mmol/L (25-35)
[2018-07-31] MEDS: ZOSYN 3.375 GM in NS 50 ML IV SCH ×3 (06:29→16:24)
[2018-07-31] MEDS: HUMULIN R SUBQ SCH ×3 (07:31→16:25)
--- NOTE | 2018-07-31 08:23 | PROGRESS NOTE ---
DATE: 07/31/2018 SUBJECTIVE: Mr. Boaz Toure's abdominal x-ray suggested dilated loops of small bowel with air and fluid consistent with postoperative ileus. He continues to receive TPN. He is eating about 25% of his meals. He states that he passes some flatus and had small bowel movements, but his abdomen still more distended. His midline incision is healing well. He is good about sitting up, moving around the room. TPN continues. His white blood cell count is normal. Hematocrit is 31%. Electrolytes are within normal limits. His heart rate is still elevated at 98 to 108, blood pressure is 156/87, O2 saturation 99%. His T-max is 99 degrees. He is still receiving IV Zosyn, which we need to consider stopping. He is on Flomax because of a urethral stricture. He is still receiving Protonix. He is getting physical therapy. cc: MD Red Ruiz MD
--- NOTE | 2018-07-31 09:28 | Diag Imaging Result Doc PS360 ---
EXAM: BARIUM ENEMA 07/31/2018 HISTORY: persitent small bowel distension, r/o colonic obst TECHNIQUE: Water-soluble barium enema, 10 images, one minute 38 seconds fluoroscopy time, 1925.6 cGy. COMMENT: There is free retrograde flow of water-soluble contrast from the rectum to the cecum. No reflux into the terminal ileum could be elicited. There is a six significant amount of retained stool throughout the colon. The postevacuation image demonstrates evacuation of much of this from the left colon including the left side of the transverse colon. There is considerable small bowel dilatation throughout the abdomen. This may be related to ileus. IMPRESSION: Improved constipation. No evidence of colonic obstruction. Electronically signed by Ivan Huynh 07/31/2018 9:26 AM
[2018-07-31] MEDS: LEVEMIR SUBQ SCH ×2 (09:33→20:55)
[2018-07-31] MEDS: FLOMAX PO SCH ×2 (09:34→20:56)
[2018-07-31] MEDS: ARIXTRA SUBQ SCH (09:34)
[2018-07-31] MEDS: PERIDEX MT SCH ×2 (10:22→20:55)
[2018-07-31] MEDS: PROTONIX IV SCH (16:24)
[2018-07-31] MEDS ORDERED: INSULIN PEN NEEDLES ONE (17:02)
[2018-07-31] MEDS: [UNRECOGNIZED DRUG - OTHER] IV SCH ×11 (20:56)
[2018-07-31] MEDS: MAGNESIUM SULFATE IV SCH ×11 (20:56)
[2018-07-31] MEDS: LIPOSYN 20% 500 ML IV SCH (20:56)
[2018-07-31] MEDS: TPN ELECTROLYTES IV SCH ×11 (20:56)
[2018-07-31] MEDS: POTASSIUM CHLORIDE IV SCH ×11 (20:56)
[2018-07-31] MEDS: APRESOLINE PO SCH (22:42)
--- NOTE | 2018-07-31 22:49 | PROGRESS NOTE ---
DATE: 07/31/2018 SUBJECTIVE: The patient denies any new complaints. States that he is still hurting, would like pain medication. Denies any nausea. States he is tolerating oral diet a little bit. PHYSICAL EXAM: Vital signs: Temperature 98, pulse 116, respiratory rate 18, BP 174/101. General: Patient is awake, alert. He is in no current respiratory distress. Pleasant to talk with. HEENT: Normocephalic. Neck: Supple. Cardiovascular: Regular rate. Chest: Clear, nonlabored. Abdomen: Soft. Positive bowel sounds. Diffusely mildly tender. Extremities: Moves all extremities. ASSESSMENT: 1. Hypertension. Blood pressure remains elevated. Now that he is taking orals, we will add hydralazine twice daily. 2. Type 2 diabetes. 3. Bowel obstruction status post exploratory laparotomy. PLAN: Dr. Kelley has seen the patient earlier. The patient continues to improve, seems to be tolerating p.o. well. At this point, we will stop Zosyn as he has had antibiotics for 10 days. He has no current signs or symptoms of infection. Discussed with patient he needs to attempt to wean down his pain medications, this certainly could be prolonging his symptoms, and will follow. cc: MD Red Leonard MD
[2018-08-01] MEDS: HUMULIN R SUBQ SCH ×5 (00:01→21:38)
[2018-08-01] MEDS: DILAUDID IV PRN ×2 (06:04→09:40)
[2018-08-01] MEDS: PERIDEX MT SCH ×2 (09:40→21:37)
[2018-08-01] MEDS: APRESOLINE PO SCH (09:41)
[2018-08-01] MEDS: FLOMAX PO SCH ×2 (09:41→21:37)
[2018-08-01] MEDS: DULCOLAX PR SCH ×2 (09:41→21:39)
[2018-08-01] MEDS: LEVEMIR SUBQ SCH ×2 (09:42→21:38)
--- NOTE | 2018-08-01 11:26 | PROGRESS NOTE ---
DATE: 08/01/2018 SUBJECTIVE: Mr. Boaz Toure is a 67-year-old black male who has been here since 07/11/2018. I operated on him for a small bowel obstruction but he has had a postoperative ileus. Yesterday, I put him through a Gastrografin enema to be sure there was no colonic obstruction that I had missed and actually this Gastrografin enema was therapeutic causing him to have several bowel movements. He continues to remain remained distended but he is eating. He is on TPN. We are going to stop his Dilaudid in hopes that will help his small bowel. His heart rate remains elevated, its at 100, blood pressure 149/86, O2 saturation 100%. He is afebrile. He is on no IV antibiotics. Zosyn was stopped after 10 days. His white blood cell count last check was normal as was his electrolytes. PLAN: We are going to stop his TPN and see if he can maintain his hydration and caloric status without it. cc: MD Red Ruiz MD
[2018-08-01] MEDS: NORCO-10 PO PRN ×3 (11:38→23:16)
[2018-08-01] MEDS: ARIXTRA SUBQ SCH (11:38)
[2018-08-01 11:47] LABS: AGAP 12; ALBUMIN 3.9 g/dL (3.5-5.0); BUN 21 mg/dL (8-22); CALCIUM 9.8 mg/dL (8.8-10.2); CHLORIDE 98 mmol/L (98-107); COSMO 278; CREATININE 0.8 mg/dL (0.7-1.2); ESTIMATED GFR > 60; GLUCOSE 220 mg/dL (70-104); MAGNESIUM 1.8 mg/dL (1.5-2.7); PHOSPHORUS 3.2 mg/dL (2.7-4.5); POTASSIUM 4.4 mmol/L (3.5-5.1); SODIUM 134 mmol/L (136-145); TCO2 24 mmol/L (25-35)
[2018-08-01] MEDS: PROTONIX IV SCH (16:08)
[2018-08-01] MEDS: SODIUM CHLORIDE 0.9% INJ SCH (16:08)
[2018-08-01] MEDS ORDERED: LABETALOL IV PRN (19:33)
--- NOTE | 2018-08-01 19:57 | PROGRESS NOTE ---
DATE: 08/01/2018 INTERVAL HISTORY: No acute overnight events. The patient's vitals current continues to remain on 110 to 120 per minute. On bedside monitor, it appears to be sinus tachycardic. He continues to have blood glucose more than 200 and he is slightly hypertensive. Currently, he denies any chest pain or shortness of breath. He continues to pass some gas. He had a bowel movement yesterday. Currently denies any chest pain or shortness of breath. PHYSICAL EXAMINATION: Vitals: Temperature 98, pulse 115 per minute, respiratory rate 18, blood pressure 155/85, saturating 96% on room air. General: Does not appear in any acute distress. ENT: Oral cavity is moist. Lungs: Air entry bilaterally equal. No wheeze, rhonchi, crackles. Heart: S1, S2 normal. No murmur, rub, or gallop. Tachycardic. Abdomen: Distended with gas. There is midline scar extending from the xiphoid process of sternum to pubic symphysis with yohana on. He has mild generalized abdominal tenderness. Active bowel sounds. Extremities: No lower extremity edema. : He does not have urine catheter. LABS: No CBC today. BMP suggestive of essentially unremarkable with normal kidney function. ASSESSMENT AND PLAN: 1. Essential hypertension. Start patient on home metoprolol and continue hydralazine, which I will try to discontinue and we will add amlodipine, considering patient's tachycardia. 2. Sinus tachycardia. Follow-up with EKG to confirm that this is likely postoperative tachycardia in the setting of abdominal pain and stress, related to the surgery. We will continue to monitor. Hopefully, beta saida for essential hypertension might help it a little bit. 3. Type 2 diabetes mellitus. Continue insulin glargine and sliding scale insulin. Add mealtime insulin. 4. History of small bowel obstruction and perforation of mid small bowel, status post exploratory laparotomy with lysis of adhesion and primary repair of small-bowel perforation on 07/15/2018, status post prolonged ileus. Management as per surgical team. His total parenteral nutrition has been on hold and the patient has been on p.o. diet. Others: 1. Tobacco use disorder. Continue nicotine patch. 2. Continue tamsulosin to avoid urinary retention and for benign prostatic hypertrophy. 3. Continue on enoxaparin for prophylaxis against deep vein thrombosis. Plan of care discussed with the patient. All of his questions have been answered. cc: Anthony Edmondson MD MTDD
[2018-08-01] MEDS: LIPOSYN 20% 500 ML IV SCH (21:36)
[2018-08-01] MEDS: POTASSIUM CHLORIDE IV SCH ×11 (21:37)
[2018-08-01] MEDS: TPN ELECTROLYTES IV SCH ×11 (21:37)
[2018-08-01] MEDS: MAGNESIUM SULFATE IV SCH ×11 (21:37)
[2018-08-01] MEDS: [UNRECOGNIZED DRUG - OTHER] IV SCH ×11 (21:37)
[2018-08-01] MEDS: TOPROL XL PO SCH (21:39)
[2018-08-02] MEDS: NORCO-10 PO PRN ×4 (04:15→22:26)
[2018-08-02 05:57] LABS: BASO# 0.02 X1000 (0.0-0.2); BASO% 0.3 % (0.0-0.8); EOS# 0.43 X1000 (0.0-0.7); EOS% 5.4 % (0.0-10.0); HEMATOCRIT 32.2 % (42.0-52.0); HEMOGLOBIN 10.4 g/dL (14.0-18.0); IMM GRAN# 0.08 X1000 (0.0-0.04); LYMPH# 1.77 X1000 (1.2-3.4); LYMPH% 22.4 % (20.5-51.1); MCH 30.6 PG (27-31); MCHC 32.3 g/dL (33-37); MCV 94.7 FL (81-99); MONO# 0.91 X1000 (0.11-0.59); MONO% 11.5 % (1.7-9.3); MPV 12.2 FL (7.4-10.4); NEUT# 4.68 X1000 (1.4-6.5); NEUT% 59.4 % (42.2-75.2); PLT 299 X1000 (130-400); RDW 12.8 % (11.5-14.5); WBC 7.89 X1000 (4.8-10.8)
[2018-08-02] MEDS: HUMALOG SUBQ SCH ×3 (07:03→16:21)
[2018-08-02] MEDS: HUMULIN R SUBQ SCH ×3 (07:03→16:22)
[2018-08-02 07:55] LABS: AGAP 13; ALBUMIN 3.7 g/dL (3.5-5.0); BUN 22 mg/dL (8-22); CALCIUM 9.5 mg/dL (8.8-10.2); CHLORIDE 100 mmol/L (98-107); COSMO 277; CREATININE 0.8 mg/dL (0.7-1.2); ESTIMATED GFR > 60; GLUCOSE 190 mg/dL (70-104); MAGNESIUM 1.8 mg/dL (1.5-2.7); PHOSPHORUS 3.9 mg/dL (2.7-4.5); POTASSIUM 4.5 mmol/L (3.5-5.1); SODIUM 134 mmol/L (136-145); TCO2 21 mmol/L (25-35)
[2018-08-02] MEDS: PERIDEX MT SCH ×2 (09:54→20:37)
[2018-08-02] MEDS: NORVASC PO SCH (09:56)
[2018-08-02] MEDS: FLOMAX PO SCH ×2 (09:56→20:37)
[2018-08-02] MEDS: TOPROL XL PO SCH (09:57)
[2018-08-02] MEDS: LEVEMIR SUBQ SCH (09:58)
[2018-08-02] MEDS: ARIXTRA SUBQ SCH (09:59)
[2018-08-02] MEDS: DULCOLAX PR SCH ×2 (10:02→20:38)
--- NOTE | 2018-08-02 14:04 | PROGRESS NOTE ---
DATE: 08/02/2018 SUBJECTIVE: Mr. Toure has been here 3 weeks status post exploratory laparotomy and extensive lysis of adhesions. He has had a postoperative ileus. His abdomen remains distended. However, he is able to eat some meals. I have done a Gastrografin barium enema which shows no evidence of any colonic obstruction/ he has had bowel movements. He continues to be on TPN, and I just feel that we are going to have to stop his TPN and see how he eats. He has been good about ambulating in the halls. His white blood cell count is normal. Hematocrit is 32%. Electrolytes are within normal limits. His glucose has been a little bit elevated. His heart rate remains elevated at 98. Blood pressure 141/97, O2 saturation 96%. He is afebrile. He is on no antibiotics. PLAN: We will look to stop his lipids and TPN, and see how she tolerates meals despite his abdominal distention. cc: MD Anthony Ruiz MD
[2018-08-02] MEDS: NICODERM PATCH TD PRN (16:16)
[2018-08-02] MEDS: PROTONIX IV SCH (18:20)
[2018-08-02] MEDS: SODIUM CHLORIDE 0.9% INJ SCH (18:20)
[2018-08-02] MEDS: LIPOSYN 20% 500 ML IV SCH (18:21)
--- NOTE | 2018-08-02 19:48 | PROGRESS NOTE ---
DATE: 08/02/2018 INTERVAL HISTORY: No acute overnight events. The patient states that he has been passing gas, and he had a medium-quantity bowel movement. Denies any complaints. His EKG had sinus tachycardia. Currently he is denying any nausea or vomiting. OBJECTIVE: Vitals suggest temperature of 98.6 degrees, pulse 110, normal sinus rhythm on bedside monitor, blood pressure of 133/94, saturating 100% on room air. General: He does not appear in any acute distress. Oral cavity is moist. Air entry bilaterally equal and no wheeze, rhonchi, or crackles. S1, S2 normal, tachycardic. No murmur, rub, or gallop. Abdomen is distended with gas. Midline scar extending from the xiphoid process of sternum to pubic symphysis with yohana on. He has a mild generalized abdominal tenderness. Is tympanic to percussion. Active bowel sounds. No lower extremity edema. DIAGNOSTIC STUDIES: Labs today suggestive of normocytic anemia. Electrolytes in a largely acceptable range. No new microbiological data. No new imaging. Barium enema on July 31 did suggest that there was no large intestinal obstruction. ASSESSMENT AND PLAN: 1. Essential hypertension, now better controlled on patient's home metoprolol and amlodipine. Give p.r.n. labetalol as needed, and I will up-titrate metoprolol as tolerated. 2. Sinus tachycardia, likely postoperative tachycardia in the setting of pain. No need of intervention. 3. History of insulin-dependent type 2 diabetes mellitus. Continue current dose of insulin glargine and sliding scale insulin with mealtime insulin. His blood sugars are better controlled now. 4. Current admission for small bowel obstruction and perforation of mid small bowel, status post exploratory laparotomy with lysis of adhesions and primary repair of small bowel perforation on 07/15/2018, status post prolonged ileus. I will stop total parenteral nutrition and continue patient on p.o. diet with bisacodyl to avoid constipation. 5. Others: Continue nicotine patch for tobacco abuse, tamsulosin for history of BPH, enoxaparin for DVT prophylaxis. DISPOSITION: The patient remains inside the hospital for postoperative prolonged ileus. Plan of care has been discussed with the patient, and all of his questions have been answered. Surgery on board. cc: Anthony Edmondson MD
[2018-08-02] MEDS ORDERED: MELATONIN PO ONE (23:48)
[2018-08-03] MEDS: HUMULIN R SUBQ SCH ×4 (00:11→15:45)
[2018-08-03] MEDS: LEVEMIR SUBQ SCH ×2 (01:15→09:12)
[2018-08-03] MEDS: NORCO-10 PO PRN ×4 (04:13→21:48)
[2018-08-03] MEDS: HUMALOG SUBQ SCH ×3 (06:46→15:44)
[2018-08-03 07:48] LABS: AGAP 15; BUN 26 mg/dL (8-22); CALCIUM 9.7 mg/dL (8.8-10.2); CHLORIDE 98 mmol/L (98-107); COSMO 275; CREATININE 0.8 mg/dL (0.7-1.2); ESTIMATED GFR > 60; GLUCOSE 138 mg/dL (70-104); MAGNESIUM 1.7 mg/dL (1.5-2.7); PHOSPHORUS 4.6 mg/dL (2.7-4.5); POTASSIUM 4.4 mmol/L (3.5-5.1); PREALBUMIN 22.7 mg/dL (20-40); SODIUM 134 mmol/L (136-145); TCO2 21 mmol/L (25-35)
[2018-08-03] MEDS: FLOMAX PO SCH ×2 (09:11→21:48)
[2018-08-03] MEDS: PERIDEX MT SCH ×2 (09:11→21:48)
[2018-08-03] MEDS: TOPROL XL PO SCH (09:11)
[2018-08-03] MEDS: ARIXTRA SUBQ SCH (09:11)
[2018-08-03] MEDS: NORVASC PO SCH (09:11)
[2018-08-03] MEDS: DULCOLAX PR SCH ×2 (09:12→21:48)
--- NOTE | 2018-08-03 10:46 | GENERAL SURGERY PROGRESS NOTE ---
DATE: 08/03/2018 SUBJECTIVE: Patient seems to be doing okay. He is on a GI soft diet. He is having bowel movements. OBJECTIVE: Vital Signs: Patient is currently afebrile. His vital signs are stable. General: No acute distress. Cardiovascular: Some mild tachycardia in the 1 teens. Lungs: Grossly clear. Abdomen: Soft, distended, but nontender. ASSESSMENT AND PLAN: A 67-year-old gentleman status post exploratory laparotomy with slow return of bowel function. Postoperative state: At this time, patient seems to be doing okay. He is still somewhat distended, but overall he is tolerating his gastrointestinal diet. We will continue to monitor him. cc: MD Anthony Martinez MD
[2018-08-03] MEDS: PROTONIX IV SCH (16:38)
[2018-08-03] MEDS: NICODERM PATCH TD PRN (16:38)
[2018-08-03] MEDS: SODIUM CHLORIDE 0.9% INJ SCH (16:38)
--- NOTE | 2018-08-03 18:08 | PROGRESS NOTE ---
DATE: 08/03/2018 INTERVAL HISTORY: His total parenteral nutrition was stopped and he has been eating by mouth. He is feeling significantly better over the last 48 hours or so. Denies nausea or vomiting. He has been passing gas. He had a bowel movement yesterday. We discussed about his clinical course, adjusting insulin dose, and answered all of his questions currently. OBJECTIVE: Currently vital signs detect temperature of 99.5 degrees, pulse 107, respiratory rate 20, blood pressure 134/68, saturating 98% on room air. General: Does not appear in any acute distress. Oral cavity is moist. No pallor, cyanosis, clubbing or icterus. Air entry bilaterally equal. No wheeze, rhonchi or crackles. S1, S2 normal, tachycardic. Sinus on bedside monitor. No murmur, rub or gallop. Abdomen is distended with gas. Midline scar extending from xiphoid process to symphysis pubis with yohana on. He has mild generalized abdominal tenderness, tympanic to percussion; however, it is soft. Active bowel sounds. No lower extremity edema. Neurologic: He is alert and oriented x3. LABORATORY DATA: No CBC today. BMP suggestive of acceptable range of electrolytes mostly. His blood sugars have been acceptable as well. Microbiology: No microbiological data. DIAGNOSTIC DATA: No new imaging. ASSESSMENT AND PLAN: 1. Essential hypertension. Continue home metoprolol and amlodipine, currently in acceptable range. 2. Sinus tachycardia, likely because of abdominal pain and postoperative state. I will just monitor it. 3. History of insulin-dependent type 2 diabetes mellitus. Continue insulin detemir, sliding scale insulin and mealtime insulin. I will decrease the detemir dose, considering his acceptable range of blood sugars and then we have stopped his total parenteral nutrition. 4. Small bowel obstruction and perforation of mid small bowel, status post exploratory laparotomy with lysis of adhesions and primary repair of small-bowel perforation on 07/15, status post prolonged ileus. Continue oral diet and bisacodyl suppository to avoid constipation. 5. Continue nicotine patch for tobacco abuse, tamsulosin for history of benign prostatic hypertrophy, enoxaparin for deep venous thrombosis prophylaxis. 6. Disposition: The patient remains inside the hospital as we manage his postoperative course. He has been tolerating diet well and has been passing gas. If he shows this consistently, I would anticipate discharge early next week. He has been ambulating without any trouble. cc: Anthony Edmondson MD
[2018-08-04] MEDS: HUMULIN R SUBQ SCH ×5 (00:54→22:27)
[2018-08-04] MEDS: LEVEMIR SUBQ SCH ×3 (00:55→22:27)
[2018-08-04] MEDS: NORCO-10 PO PRN ×4 (04:06→22:34)
--- NOTE | 2018-08-04 07:37 | GENERAL SURGERY PROGRESS NOTE ---
DATE: 08/04/2018 SUBJECTIVE: The patient seems to be doing okay. He seems less distended. He has been hemodynamically stable. He has had bowel movements. He is tolerating his diet. From a surgical point of view, he seems to be improving, but will continue to monitor him. cc: MD Anthony Martinez MD
[2018-08-04] MEDS: HUMALOG SUBQ SCH ×3 (07:50→17:06)
[2018-08-04] MEDS: PERIDEX MT SCH ×2 (08:52→22:33)
[2018-08-04] MEDS: FLOMAX PO SCH ×2 (08:52→22:33)
[2018-08-04] MEDS: NORVASC PO SCH (08:52)
[2018-08-04] MEDS: TOPROL XL PO SCH (08:52)
[2018-08-04] MEDS: ARIXTRA SUBQ SCH (08:52)
[2018-08-04] MEDS: DULCOLAX PR SCH ×2 (08:59→22:30)
[2018-08-04] MEDS: PROTONIX IV SCH (16:23)
[2018-08-04] MEDS: SODIUM CHLORIDE 0.9% INJ SCH (16:23)
[2018-08-04] MEDS: NICODERM PATCH TD PRN (16:24)
--- NOTE | 2018-08-04 17:52 | PROGRESS NOTE ---
DATE: 08/04/2018 INTERVAL HISTORY: No acute events. He has been eating okay. He had a bowel movement yesterday. Denies any complaints currently. OBJECTIVE: Vital Signs: Detect temperature of 98.5 degrees, pulse 107, respiratory rate 17, blood pressure 124/70, saturating 98% on room air. General: Does not appear in any acute distress. HEENT: Oral cavity is moist. No pallor, cyanosis, clubbing, or icterus. Lungs: Air entry bilaterally equal. No wheeze, rhonchi, or crackles. Cardiovascular: S1, S2 normal. Tachycardic, sinus on bedside monitor. No murmur, rub, or gallop. Abdomen: Distended with gas. Tympanic to percussion. Midline scar extending from xiphoid sternum to symphysis pubis with yohana. Minimal tenderness around the incision site without any discharge or erythema. Mild generalized abdominal tenderness. No lower extremity edema. Neurologic: He is alert and oriented x3. LABORATORY DATA: No new laboratory data. His blood sugars have been in excellent control between 160 to 190 on most occasions. ASSESSMENT AND PLAN: 1. Essential hypertension. Continue home metoprolol and amlodipine currently in acceptable range. His sinus tachycardia is likely because of postoperative state and pain. 2. History of type 2 diabetes mellitus with uncontrolled hyperglycemia. Continue current dose of insulin glargine, mealtime insulin, sliding scale insulin. It is in acceptable range at the moment. 3. Small-bowel obstruction and perforation of mid small bowel status post exploratory laparotomy with lysis of adhesions and primary repair of small-bowel perforation on July 15, status post prolonged course with ileus. Continue oral diet. Bisacodyl suppository to avoid constipation. 4. Continue nicotine patch for tobacco abuse, tamsulosin for history of BPH, enoxaparin for DVT prophylaxis. 5. Disposition: At this point, the patient has been eating softer diet without any trouble and has been having consistent bowel movements on a daily basis. I will appreciate Surgery recommendation about discharge sometime next week. Plan of care discussed with the patient. All of his questions have been answered. cc: Anthony Edmondson MD
[2018-08-05] MEDS: NORCO-10 PO PRN ×4 (04:31→22:40)
[2018-08-05 05:43] LABS: BASO# 0.01 X1000 (0.0-0.2); BASO% 0.1 % (0.0-0.8); EOS# 0.22 X1000 (0.0-0.7); EOS% 3.1 % (0.0-10.0); HEMATOCRIT 35.1 % (42.0-52.0); HEMOGLOBIN 11.5 g/dL (14.0-18.0); IMM GRAN# 0.03 X1000 (0.0-0.04); IMM GRAN% 0.4 % (0.0-0.5); LYMPH# 1.59 X1000 (1.2-3.4); LYMPH% 22.4 % (20.5-51.1); MCH 30.4 PG (27-31); MCHC 32.8 g/dL (33-37); MCV 92.9 FL (81-99); MONO# 0.87 X1000 (0.11-0.59); MONO% 12.3 % (1.7-9.3); MPV 12.9 FL (7.4-10.4); NEUT# 4.37 X1000 (1.4-6.5); NEUT% 61.7 % (42.2-75.2); PLT 284 X1000 (130-400); RBC 3.78 XMIL (4.7-6.1); RDW 12.8 % (11.5-14.5); WBC 7.09 X1000 (4.8-10.8)
[2018-08-05 06:27] LABS: AGAP 11; BUN 30 mg/dL (8-22); CALCIUM 10.1 mg/dL (8.8-10.2); CHLORIDE 101 mmol/L (98-107); COSMO 273; CREATININE 1.1 mg/dL (0.7-1.2); ESTIMATED GFR > 60; GLUCOSE 169 mg/dL (70-104); MAGNESIUM 1.9 mg/dL (1.5-2.7); PHOSPHORUS 4.2 mg/dL (2.7-4.5); POTASSIUM 5.3 mmol/L (3.5-5.1); SODIUM 131 mmol/L (136-145); TCO2 19 mmol/L (25-35)
[2018-08-05] MEDS: HUMULIN R SUBQ SCH ×4 (06:28→22:41)
[2018-08-05] MEDS: HUMALOG SUBQ SCH ×2 (06:28→13:33)
[2018-08-05] MEDS ORDERED: INSULIN PEN NEEDLES ONE (06:37)
[2018-08-05] MEDS: NORVASC PO SCH (09:53)
[2018-08-05] MEDS: ARIXTRA SUBQ SCH (09:53)
[2018-08-05] MEDS: PERIDEX MT SCH ×2 (09:53→22:40)
[2018-08-05] MEDS: TOPROL XL PO SCH (09:53)
[2018-08-05] MEDS: FLOMAX PO SCH ×2 (09:53→22:40)
[2018-08-05] MEDS: DULCOLAX PR SCH ×2 (09:54→22:40)
[2018-08-05] MEDS: LEVEMIR SUBQ SCH (09:54)
--- NOTE | 2018-08-05 14:22 | PROGRESS NOTE ---
DATE: 08/05/2018 SUBJECTIVE: The patient is sitting up in bed without complaints currently. States he has walked in the hallway today but states he has not had a bowel movement today, with his last bowel movement being yesterday. OBJECTIVE: Vital Signs: Temperature 98.1 degrees, pulse 105, respirations 20, blood pressure 133/88, saturating 96% on room air. HEENT: Normocephalic, atraumatic. Normal ENT inspection. Oropharynx and nares are clear. Eyes: Pupils are equal, round, and reactive to light and accommodation. Extraocular movements are intact. Neck: Normal inspection. Normal range of motion. Lungs: Clear to auscultation bilaterally with equal lung expansion and chest wall movement. Heart: With regular rate and rhythm. No murmurs, rubs, or gallops. Abdomen: Distended. Midline yohana are clean, dry, and open to air. Tenderness to palpation noted. Bowel sounds are present x4 quadrants. Musculoskeletal: He has 5/5 strength x4 extremities. Neurological: The cranial nerves 2-12 appear grossly intact. Laboratory Data: Showed a sodium of 131, potassium 5.3, chloride 101, CO2 19, BUN of 30, creatinine 1.1, glucose 169. White blood cell count of 7.09, hemoglobin 11.5, hematocrit 35.1, platelets 284,000. ASSESSMENT AND PLAN: 1. Small bowel obstruction and perforation of mid small bowel, status post exploratory laparotomy with lysis of adhesions and primary repair of small bowel perforation, status post prolonged course with ileus. We will continue with his oral diet. Continue his bisacodyl 10 mg per rectum twice a day to prevent constipation. Continues to be followed by general surgery. 2. Essential hypertension. We will continue his medication regimen and follow. 3. History of type 2 diabetes with uncontrolled hyperglycemia. We will continue his current insulin regimen. Continue his pattern of blood sugars with sliding scale insulin and follow. 4. Tobacco abuse. We will continue his nicotine patch. 5. Disposition. 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 We will await surgical input for discharge planning. Dictated by SILVIO Simental for Anthony Edmondson MD cc: SILVIO Simental MD I agree with the above mentioned components of assessment and plan. A separate addendum has been dictated. MTDD
[2018-08-05] MEDS ORDERED: ALBUTEROL 0.5% INH CONC FOR HYPERKALEMIA INH ONE (15:20)
--- NOTE | 2018-08-05 15:37 | PROGRESS NOTE ---
DATE: 08/05/2018 SUBJECTIVE: Mr. Toure'arnoldo TPN has been stopped. He is eating. OBJECTIVE: Exam: His abdomen remains distended, but he does have bowel function. His midline incision is healing without infection. PLAN: We are going to try to get him home under the care of his family. I will remove his skin clips prior to discharge and I will follow him in our outpatient office two weeks after discharge. cc: MD Anthony Ruiz MD
--- NOTE | 2018-08-05 15:43 | PROGRESS NOTE ---
DATE: 08/05/2018 ADDENDUM TO PROGRESS NOTE DICTATED BY NURSE PRACTITIONER: I agree with most components of history, physical, assessment and plan. HISTORY: In brief, Mr. Toure did not have any acute overnight events. He is denying any new complaints. He had a bowel movement yesterday. OBJECTIVE: Vitals: Vitals detect persistent tachycardia with heart rate of 109, which appears sinus, normotensive, breathing well on room air. Exam: On physical examination, he has persistent distention with mild tenderness. LABS: Labs are consistent with hyponatremia and hyperkalemia, for which I am going to give intravenous insulin and will follow up with BMP tomorrow. ASSESSMENT AND PLAN: 1. Essential hypertension. 2. Type 2 diabetes mellitus with uncontrolled hyperglycemia. 3. Small bowel obstruction with perforation status post exploratory laparotomy and lysis of adhesions and primary repair on July 15. 4. Tobacco abuse. PLAN: Continue pain management as per Surgery. I will change his insulin regimen to allow better compliance at the time of discharge. Will start him on p.o. medication. After discussion with the surgeon, patient will be discharged tomorrow home. cc: Anthony Edmondson MD MTDD
[2018-08-05] MEDS: SODIUM CHLORIDE 0.9% INJ SCH (16:31)
[2018-08-05] MEDS: PROTONIX IV SCH (16:31)
[2018-08-05] MEDS: GLUCOPHAGE PO SCH (16:36)
[2018-08-06] MEDS: NORCO-10 PO PRN ×3 (04:42→16:42)
[2018-08-06] MEDS: HUMULIN R SUBQ SCH ×2 (06:13→11:38)
[2018-08-06 06:24] LABS: AGAP 12; BUN 32 mg/dL (8-22); CALCIUM 9.8 mg/dL (8.8-10.2); CHLORIDE 101 mmol/L (98-107); COSMO 279; CREATININE 1.1 mg/dL (0.7-1.2); ESTIMATED GFR > 60; GLUCOSE 134 mg/dL (70-104); POTASSIUM 4.5 mmol/L (3.5-5.1); SODIUM 135 mmol/L (136-145); TCO2 22 mmol/L (25-35)
[2018-08-06] MEDS ORDERED: LEVEMIR SUBQ SCH (09:00)
--- NOTE | 2018-08-06 09:03 | PROGRESS NOTE ---
DATE: 08/06/2018 SUBJECTIVE: The patient is currently resting quietly in bed, just received his morning breakfast. He states he had a bowel movement yesterday and no complaint currently. OBJECTIVE: Vitals: Temperature 98.5 degrees, pulse 105, respirations 18, blood pressure 135/76, saturating 98% on room air. HEENT: Normocephalic, atraumatic. Normal ENT inspection. Oropharynx and nares are clear. Eyes, pupils are equal, round, and reactive to light and accommodation. Extraocular movements are intact. Lungs: Clear to auscultation bilaterally. Heart: Regular rate and rhythm. No murmurs, rubs, or gallops. Abdomen: The abdomen remains distended with gas, tympanic to percussion. His midline incision is clean and dry, with yohana in place at this time. Mild tenderness is noted around the incision site, but no drainage or erythema noted. Bowel sounds are present x4 quadrants. Neurologic: He is alert and oriented x3. LABORATORY DATA: Sodium 135, potassium 4.5, chloride 101, CO2 22, BUN of 32, creatinine 1.1, glucose 134. ASSESSMENT: 1. Essential hypertension. 2. Type 2 diabetes, with uncontrolled hyperglycemia. 3. Small-bowel obstruction with perforation, status post exploratory laparotomy and lysis of adhesions and primary repair on July 15. 4. Hyponatremia and hyperkalemia. 5. Tobacco abuse. PLAN: We will continue pain management as per Surgery. His blood sugar medications were adjusted yesterday by the hospitalist and he appears to be under better control today. He is on Levemir 45 units subcutaneous q.a.m. and metformin 500 mg p.o. b.i.d. and we will continue those medications. His hyponatremia and hyperkalemia are resolved with those adjustments. The plan was for him to be discharged home today after seen by Surgery. Dictated by SILVIO Simental for Anthony Edmondson MD cc: SILVIO Simental MD I agree with the components of clinical encounter above. A separate addendum has been dictated. [facility]
[2018-08-06] MEDS: ARIXTRA SUBQ SCH (09:06)
[2018-08-06] MEDS: PERIDEX MT SCH (09:07)
[2018-08-06] MEDS: FLOMAX PO SCH (09:07)
[2018-08-06] MEDS: NORVASC PO SCH (09:07)
[2018-08-06] MEDS: TOPROL XL PO SCH (09:07)
[2018-08-06] MEDS: GLUCOPHAGE PO SCH ×2 (09:07→16:03)
[2018-08-06] MEDS: DULCOLAX PR SCH (09:08)
--- NOTE | 2018-08-06 12:45 | PROGRESS NOTE ---
DATE: 08/06/2018 SUBJECTIVE: Mr. Toure is doing better. His abdomen feels softer. He is walking and moving around and eating. His bowels are moving, although they are loose. OBJECTIVE: Vital Signs: Temperature 97.4 degrees, pulse 105, respirations 14, blood pressure 151/77. HEENT: Pupils are equal and round. Lungs: Clear in all lung alexandre. Cardiovascular: Regular rhythm and rate without murmur or S3. Abdomen: Soft. Skin: Warm and dry. ASSESSMENT AND PLAN: 1. Essential hypertension. Blood pressure better. 2. Type 2 diabetes. Blood sugars improved. 3. Small bowel obstruction, perforation status post exploratory laparotomy, lysis of adhesions, very slow postop ileus. 4. Hyponatremia and hyperkalemia which are better. 5. Tobacco use. He wants to still try and go home so his hematocrit is 35, hemoglobin 11. Blood sugars appear under good control. Continue physical therapy. Hope to go home soon. Plan to remove his skin clips prior to discharge and see if we get home health. TPN has been stopped. REVIEW OF MEDICATIONS: His orders he is on Arixtra 2.5 mg subcutaneous daily. He is on insulin detemir 45 mg subcutaneously q.a.m., metformin 500 mg b.i.d., nicotine patch 21 mg daily, Flomax 0.4 mg b.i.d., Norvasc 10 mg a day. cc: MD Anthony Murray MD
--- NOTE | 2018-08-06 12:58 | PROGRESS NOTE ---
DATE: 08/06/2018 SUBJECTIVE: Mr. Toure will be sent home today. He had exploratory laparotomy with lysis of adhesions. He has had a prolonged ileus postoperatively, but he has been tolerating a regular diet. His midline incision seems to be healing well. He does have a hematoma in the inferior aspect of the incision, but there is no evidence of infection. I removed all skin clips and he will return to see me in our outpatient offices in about 2 weeks. He is to return to his home medications. He is able to shower daily and he can eat what he has a taste for. cc: MD Anthony Ruiz MD
--- NOTE | 2018-08-06 13:29 | PROGRESS NOTE ---
DATE: 08/06/2018 ADDENDUM: I agree with most components of the progress note. SUBJECTIVE: Patient is feeling fine. Denies any cough, shortness of breath, fevers, chills, or chest pain. Denies any nausea or vomiting. His abdominal pain is well controlled. He has been passing gas. He has been having bowel movements. Reviewing the medication suggests that he has not used any Phenergan in the last 48 hours. He has only used 1 [place] in the last 48 hours currently. OBJECTIVE: Vital Signs: Temperature 97.4 degrees, pulse 105, respiratory rate 14, blood pressure 150/70, and saturating 99% on room air. General: Not in acute distress. Oral cavity is moist. Lungs: Air entry bilaterally equal. No wheeze or rhonchi. Mild bibasilar crackles, improved on coughing. Cardiovascular: S1, S2 normal. Tachycardic. Sinus. No murmur, rub or gallop. Abdomen: Soft. His yohana are to be removed by surgeon doctor, only mildly tender. Extremities: No lower extremity edema. ASSESSMENT AND PLAN: 1. Essential hypertension. 2. Type 2 diabetes mellitus, now insulin-dependent with uncontrolled hyperglycemia. 3. Small bowel obstruction with perforation status post exploratory laparotomy with lysis of adhesions and repair on 07/15. 4. Tobacco abuse. PLAN: I will prescribe the patient insulin metformin, blood glucose test strips, and needles. He should follow up with his regular doctor about adjusting his blood glucose insulin and metformin dose according to sugar. He should also follow up with surgeon doctor in about 10 days. Plan of care discussed with him. All of his questions have been answered. cc: Anthony Edmondson MD
[2018-08-06 15:43] VITALS: BP 123/78
--- NOTE | 2018-09-09 09:33 | DISCHARGE SUMMARY ---
ADMISSION DATE: 07/11/2018 DISCHARGE DATE: 08/06/2018 ADMITTING DIAGNOSIS: Small-bowel obstruction. DISCHARGE DIAGNOSIS: Small bowel obstruction. PRINCIPAL PROCEDURE: 1. Exploratory laparotomy with lysis of adhesions. 2. Primary repair of small-bowel perforation 07/15/2018. 3. Difficult Titus catheter placement per Gaby Arnold 07/15/2018. DISCHARGE DIET: Regular discharge. DISCHARGE DISPOSITION: He will return to our outpatient offices in 2 weeks for followup. DISCHARGE DISABILITY: Full DISCHARGE MEDICATIONS: He is to return to his home medications. HOSPITAL COURSE: Mr. Boaz Toure is a 67-year-old black male who presented to our emergency department with abdominal distention nausea and vomiting. As part of his evaluation, he underwent a CT scan of his abdomen and pelvis which suggested a small bowel obstruction. He had previous abdominal surgery. He was admitted by Dr. Adriel Hamilton and our hospitalists were consulted. I took over his care 07/13/2018 and over the next 48 hours his abdominal distention and symptoms did not improve. So on 07/15/2018 he went to the operating room for exploratory laparotomy with lysis of adhesions. He also was discovered to have a fishbone in the small bowel and we had to repair a enterotomy at the time of surgery. He also had a difficult Titus catheter placement. We asked Urology to place his Titus for us. Postoperatively his course was complicated by a prolonged postoperative ileus. He also had to have his Titus catheter in place for about a week after surgery. He underwent repeated abdominal x-rays which documented his ileus even up to 07/22/2018, a week after surgery. I put him through a barium enema on 08/10/2018 that showed no evidence of colonic obstruction and actually had helped him move his bowels and have some gas. Over the next week we were able to slowly advance the diet. His bowel seemed to be working. His abdomen did remained distended but he had no nausea or vomiting. It was felt safe on 08/06/2018 to discharge him to his home under the care of his family with followup in our outpatient office in 2 weeks. Prior to his discharge I removed his skin clips and his midline incision seems to be healing well. He knows to contact me with any problems such as increasing abdominal distention, nausea or vomiting. cc: Alyx MD Anthony Mckeon MD
== END 2018-08-06 16:45 | disposition home or self-care (01) | DRG 329 ==
LOC: P.ED 22:07 → 4N 22:08
PROVIDERS: ADMIT Internal Medicine; ATTEND Surgery
CPT/HCPCS: 71010; 71045; 74000; 74018; 74019; 74020; 74022; 74177; 74270; 80048; 80053; 80076; 81001; 82040; 82150; 82465; 82607; 82728; 82746; 82948; 83036; 83540; 83550; 83690; 83735; 84100; 84134; 84450; 84478; 85025; 85045; 86022; 87040; 87077; 87088; 87186; 88300; 93005; 94640; 94760; 94761; 94799; 96361; 96365; 96375; 96376; 97116; 97162; 97530; 99285; A9270; C9113; J0131; J0330; J0360; J0690; J0696; J1100; J1170; J1650; J1652; J1815; J1885; J1956; J2060; J2270; J2370; J2405; J2543; J2550; J3010; J3230; J3370; J3411; J3475; J3480; J7030; J7040; J7050; J7120; Q9958; Q9967; S0164; XXXXX